=== PATIENT | female | born 1930 ===

== ENCOUNTER 2017-08-13 11:36 | Inpatient (IN) | payer MEDICAID, OTHER ==
[2017-08-13 11:47] VITALS: BMI 26.4
--- NOTE | 2017-08-13 12:05 | ED PDOC ---
Arrival/HPI - General Time Seen by Provider: 08/13/17 11:48 Historian: Patient, Family (son) - History of Present Illness Narrative History of Present Illness (Text): 08/13/17 12:00 87 year old female, whose PMH includes hypertension, and CVA, who presents to the emergency department accompanied by son, complaining of 5 episodes of bloody stool since this morning. According to son, patient developed abdominal cramping associated with the blood in stool and feeling lightheadedness. Patient denies any vomiting, diarrhea, chest pain, shortness of breath, fever or other complaints. Patient notes being a non-smoker and occasional drinker. No other complaints were made. Time/Duration: 1-3 hours Symptom Onset: Sudden Symptom Course: Unchanged Context: Home Past Medical History - Provider Review Nursing Documentation Reviewed: Yes - Cardiac Hx Hypertension: Yes - Pulmonary Other/Comment: SOB ON EXERTION - Neurological HX Cerebrovascular Accident: Yes - Psychiatric Hx Psychophysiologic Disorder: No Hx Substance Use: No - Surgical History Hx Hysterectomy: Yes Hx Orthopedic Surgery: Yes (R ARM R/T FX) - Suicidal Assessment Feels Threatened In Home Enviroment: No Family/Social History - Physician Review Nursing Documentation Reviewed: Yes Family/Social History: Unknown Family HX Smoking Status: Never Smoked Hx Alcohol Use: No Hx Substance Use: No Allergies/Home Meds Allergies/Adverse Reactions: Allergies No Known Allergies Allergy (Verified 09/14/14 12:57) Home Medications: Home Meds Medication Instructions Recorded Confirmed Warfarin Sodium [Coumadin] 4 mg PO DAILY 09/14/14 08/13/17 amLODIPine [Norvasc] 5 mg PO DAILY 09/14/14 09/14/14 Albuterol Sulfate [Albuterol 0.63 mg INH Q6 PRN 08/13/17 08/13/17 Sulfate] Diltiazem HCl [Diltiazem 24Hr ER] 180 mg PO DAILY 08/13/17 08/13/17 Docusate Sodium [Erickson' 100 mg PO DAILY 08/13/17 08/13/17 Laxative] Furosemide [Lasix] 20 mg PO DAILY 08/13/17 08/13/17 Memantine [Namenda] 10 mg PO BID 08/13/17 08/13/17 Multivit-Min/FA/Lycopen/Lutein 1 tab PO DAILY 08/13/17 08/13/17 [Centrum Silver Tablet] Simvastatin [Zocor] 10 mg PO HS 08/13/17 08/13/17 Warfarin Sodium [Jantoven] 5 mg PO DAILY 08/13/17 08/13/17 Review of Systems - Physician Review All systems were reviewed & negative as marked: Yes - Review of Systems Respiratory: absent: SOB Cardiovascular: absent: Chest Pain Gastrointestinal: Abdominal Pain, Stool Changes, Hematochezia. absent: Diarrhea , Vomiting Neurological: Dizziness (lightheadedness) Physical Exam Vital Signs Reviewed: Yes Vital Signs Temp Pulse Resp BP Pulse Ox 08/13/17 13:05 96 H 18 128/71 95 08/13/17 11:46 98.0 F 87 18 130/78 95 Temperature: Afebrile Blood Pressure: Normal Pulse: Regular Respiratory Rate: Normal Appearance: Positive for: Well-Appearing, Non-Toxic, Uncomfortable Pain Distress: None Mental Status: Positive for: Alert and Oriented X 3 - Systems Exam Head: Present: Atraumatic, Normocephalic Pupils: Present: PERRL Extroacular Muscles: Present: EOMI Conjunctiva: Present: Normal Respiratory/Chest: Present: Clear to Auscultation, Good Air Exchange. No: Respiratory Distress, Accessory Muscle Use, Wheezes, Rales, Rhonchi Cardiovascular: Present: Regular Rate and Rhythm, Normal S1, S2. No: Murmurs Abdomen: Present: Normal Bowel Sounds. No: Tenderness, Distention, Peritoneal Signs, Rebound, Guarding Rectal: Present: Gross Blood Neurological: Present: GCS=15, CN II-XII Intact, Speech Normal Skin: Present: Warm, Dry, Pale. No: Rashes, Normal Color Psychiatric: Present: Alert, Oriented x 3, Normal Insight, Normal Concentration Medical Decision Making ED Course and Treatment: 08/13/17 Impression: 87 year old female who appears pale and uncomfortable with (+) for grossly bloody rectal exam complaining of bloody bowel movement since this morning. Plan: -- EKG -- Chest X-ray -- Labs -- Reassess and disposition Progress Notes: 08/13/17 13:46 EKG shows atrial fibrillation rate approximately [address] or T-wave changes 08/13/17 13:50 CXR: Creator : Denzel Bartlett MD COMPARISON:Comparison chest 09/14/2014 FINDINGS: LUNGS:Poor inspiration with low lung volumes, crowded bronchovascular markings and mild bibasilar atelectasis. . Re- demonstrated is a stable elliptical shaped 2.1 x 1.7 cm dense calcification left medial lung apex of uncertain etiology though unchanged in size in overall appearance when compared with prior study. This focus could represent a calcified granuloma or calcified left paratracheal lymph node. Calcification great vessel less likely. PLEURA:No significant pleural effusion identified, no pneumothorax apparent. CARDIOVASCULAR: Cardiomegaly. OSSEOUS STRUCTURES: No significant abnormalities. VISUALIZED UPPER ABDOMEN: Normal. OTHER FINDINGS: None. IMPRESSION: Poor inspiration with low lung volumes, crowded bronchovascular markings and mild bibasilar atelectasis. Elliptical shaped calcification left medial lung apex unchanged in size and appearance from prior study 09/14/2014. This may represent a large calcified granuloma. - Lab Interpretations Lab Results: 08/13/17 12:20 08/13/17 12:20 Lab Results 08/13/17 12:20: Sodium 145, Potassium 4.0, Chloride 105, Carbon Dioxide 27, Anion Gap 17, BUN 21, Creatinine 0.8, Est GFR ( Amer) > 60, Est GFR (Non- Af Amer) > 60, Random Glucose 126 H, Calcium 9.5, Total Bilirubin 0.8, AST 38 H , ALT 27, Alkaline Phosphatase 66, Lactate Dehydrogenase 706 H, Total Creatine Kinase 40, Troponin I < 0.01, Total Protein 6.9, Albumin 3.5, Globulin 3.3, Albumin/Globulin Ratio 1.1, Lipase 30 08/13/17 12:20: PT 65.6 H, INR 5.51 H*, APTT 43.7 H 08/13/17 12:20: WBC 13.7 H D, RBC 4.83, Hgb 12.4, Hct 39.7, MCV 82.2, MCH 25.7, MCHC 31.2, RDW 17.3 H, Plt Count 361, MPV 10.2, Gran % 82.9 H, Lymph % (Auto) 9.7 L, [place] % (Auto) 6.1 H, Eos % (Auto) 0.9 L, Baso % (Auto) 0.4, Gran # 11.35 H, Lymph # (Auto) 1.3, [place] # (Auto) 0.8 H, Eos # (Auto) 0.1, Baso # (Auto) 0.05 I have reviewed the lab results: Yes - RAD Interpretation Radiology Orders: 08/13/17 12:00 CHEST PORTABLE [RAD] Stat [employer] Professor: Radiologist - EKG Interpretation Interpreted by ED Physician: Yes Type: 12 lead EKG - Medication Orders Current Medication Orders: Discontinued Medications Phytonadione 5 mg/ Sodium (Chloride) 50.5 mls @ 100 mls/hr IV ONCE ONE Stop: 08/13/17 13:44 - Scribe Statement The provider has reviewed the documentation as recorded by the Scribe Mag Pereira Provider Scribe Attestation: All medical record entries made by the Scribe were at my direction and personally dictated by me. I have reviewed the chart and agree that the record accurately reflects my personal performance of the history, physical exam, medical decision making, and the department course for this patient. I have also personally directed, reviewed, and agree with the discharge instructions and disposition. Disposition/Present on Arrival - Present on Arrival Any Indicators Present on Arrival: No History of DVT/PE: No History of Uncontrolled Diabetes: No Urinary Catheter: No History of Decub. Ulcer: No History Surgical Site Infection Following: None - Disposition Have Diagnosis and Disposition been Completed?: Yes Diagnosis: Gastrointestinal hemorrhage, Coagulopathy Disposition: HOSPITALIZED Disposition Time: 13:47 Patient Plan: Observation, Telemetry Patient Problems: Current Active Problems Problem Status Onset Coagulopathy Acute Gastrointestinal hemorrhage Acute Condition: GOOD
[2017-08-13 12:54] LABS: BASO # 0.05 K/mm3 (0.0-2.0); BASO % 0.4 % (0.0-3.0); EOS # 0.1 (0.0-0.7); EOS % 0.9 % (1.5-5.0); GRAN # 11.35 (1.4-6.5); GRAN % 82.9 % (50.0-68.0); HEMOGLOBIN 12.4 g/dL (12.0-16.0); LYMPH # 1.3 (1.2-3.4); LYMPH % 9.7 % (22.0-35.0); MEAN CELL VOLUME 82.2 fl (80.0-105.0); MEAN CORPUSCULAR HEMOGLOBIN 25.7 pg (25.0-35.0); MEAN CORPUSCULAR HGB CONC 31.2 g/dl (31.0-37.0); MEAN PLATELET VOLUME 10.2 fl (7.0-11.0); MONO # 0.8 (0.1-0.6); MONO % 6.1 % (1.0-6.0); RBC 4.83 10^6/uL (3.5-6.1); RED CELL DISTRIBUTION WIDTH 17.3 % (11.5-14.5); WHITE BLOOD COUNT 13.7 10^3/ul (4.5-11.0)
[2017-08-13 13:08] LABS: ALB/GLOB RATIO 1.1 (1.1-1.8); ALBUMIN 3.5 g/dL (3.0-4.8); CALCIUM 9.5 mg/dL (8.4-10.5); GFR NON-AFRICAN AMERICAN > 60; LIPASE 30 U/L (23-300)
[2017-08-13 13:09] LABS: ALT/SGPT 27 U/L (7-56); AST/SGOT 38 U/L (14-36); BLOOD UREA NITROGEN 21 mg/dL (7-21); PARTIAL THROMBOPLASTIN TIME 43.7 Seconds (25.1-36.5); PROTHROMBIN TIME 65.6 SECONDS (9.4-12.5)
[2017-08-13 13:12] LABS: INR 5.51 (0.93-1.08)
[2017-08-13] MEDS ORDERED: Phytonadione 5 MG in Sodium Chloride 0.9% 50 ML IV ONE (13:14)
[2017-08-13 13:19] LABS: TROPONIN I < 0.01 ng/mL
--- NOTE | 2017-08-13 13:46 | RAD ---
HISTORY: GIB COMPARISON: Comparison chest 09/14/2014 FINDINGS: LUNGS: Poor inspiration with low lung volumes, crowded bronchovascular markings and mild bibasilar atelectasis. . Re- demonstrated is a stable elliptical shaped 2.1 x 1.7 cm dense calcification left medial lung apex of uncertain etiology though unchanged in size in overall appearance when compared with prior study. This focus could represent a calcified granuloma or calcified left paratracheal lymph node. Calcification great vessel less likely. PLEURA: No significant pleural effusion identified, no pneumothorax apparent. CARDIOVASCULAR: Cardiomegaly. OSSEOUS STRUCTURES: No significant abnormalities. VISUALIZED UPPER ABDOMEN: Normal. OTHER FINDINGS: None. IMPRESSION: Poor inspiration with low lung volumes, crowded bronchovascular markings and mild bibasilar atelectasis. Elliptical shaped calcification left medial lung apex unchanged in size and appearance from prior study 09/14/2014. This may represent a large calcified granuloma.
--- NOTE | 2017-08-13 15:25 | CP.PCM.HP ---
<Kt Hightower - Last Filed: 08/13/17 15:17> History of Present Illness - History of Present Illness History of Present Illness: IM H&P for Dr Winkler CC; Bright red blood per rectum HPI: 87 Macedonian speaking female with a PMHx of HTN, HLD, dementia, hemorrhoids s/ p banding approx 30 yrs ago, CHF EF 60%, cva x 5 and persistent A. fib on coumadin presented to [facility] with complaints of 5 consecutive episodes of bright red blood per rectum. Pt son at bedside and primary caregiver. As per son , the patient had experienced a bloody bowel movement earlier this morning and associated abdominal cramping that subsided after the 5 consecutive episodes of bright red blood per rectum. Pt denies feeling any different than her usual state of health. Patient roughly 3 weeks ago was treated at the [facility] for flu like symptoms with azithromycin and medrol dose nell. Patient also had an adjustment of her coumadin more recently where she was to take 4 mg coumadin during the week and 5mg during the weekends after being found subtherapeuthic last week. Patient denied any trauma, night sweats, fevers , chills, weight loss. Patient's son did not that the patient has poor oral intake and has tried to supplement with protein drinks. Patient admitted to shortness of breath on exertion. Of note, patient did have a screening colonoscopy years ago, records are with [facility]. In ED, patient with stable vital signs. PMHx:HTN, HLD, dementia, hemorrhoids s/p banding approx 30 yrs ago, CHF EF 60%, cva x 5 and persistent A. fib on coumadin PSHx: hysterectomy, hemorrhoid banding, right arm fx repair SHx: denied tobacco, social ETOH, denied illicit ambulates with cane FamHx: denied Meds: MAR Reviewed Allergies: NKDA PMD: Dr. Polanco American Sign Language Teacher: Dr. Corona Present on Admission - Present on Admission Any Indicators Present on Admission: No Review of Systems - Review of Systems Review of Systems: as per HPI otherwise negative Past Patient History - Past Social History Smoking Status: Never Smoked - CARDIAC Hx Hypertension: Yes - PULMONARY Other/Comment: SOB ON EXERTION - NEUROLOGICAL HX Cerebrovascular Accident: Yes - MUSCULOSKELETAL/RHEUMATOLOGICAL Hx Musculoskeletal Disorders: Yes Hx Arthritis: Yes - GASTROINTESTINAL Hx Gastrointestinal Disorders: Yes Hx Hemorrhoids: Yes - GENITOURINARY/GYNECOLOGICAL Hx Genitourinary Disorders: Yes Hx Urinary Tract Infection: Yes - PSYCHIATRIC Hx Psychophysiologic Disorder: No Hx Substance Use: No - SURGICAL HISTORY Hx Hysterectomy: Yes Hx Orthopedic Surgery: Yes (R ARM R/T FX) - ANESTHESIA Hx Anesthesia: Yes Hx Anesthesia Reactions: No Meds Allergies/Adverse Reactions: Allergies Allergy/AdvReac Type Severity Reaction Status Date / Time No Known Allergies Allergy Verified 08/13/17 14:17 Physical Exam - Constitutional Appears: No Acute Distress - Head Exam Head Exam: ATRAUMATIC, NORMAL INSPECTION, NORMOCEPHALIC - Eye Exam Eye Exam: EOMI, Normal appearance, PERRL Pupil Exam: NORMAL ACCOMODATION, PERRL - ENT Exam ENT Exam: Mucous Membranes Moist, Normal Exam - Respiratory Exam Respiratory Exam: Decreased Breath Sounds, NORMAL BREATHING PATTERN - Cardiovascular Exam Cardiovascular Exam: Irregular Rhythm, +S1, +S2 - GI/Abdominal Exam GI & Abdominal Exam: Normal Bowel Sounds, Soft. absent: Tenderness - Rectal Exam Rectal Exam: Bloody Stool - Extremities Exam Extremities exam: Positive for: normal inspection - Back Exam Back exam: NORMAL INSPECTION - Neurological Exam Neurological exam: Alert, CN II-XII Intact, Oriented x3, Reflexes Normal - Psychiatric Exam Psychiatric exam: Normal Affect, Normal Mood - Skin Skin Exam: Dry, Intact, Normal Color, Warm Results - Vital Signs Recent Vital Signs: Last Vital Signs Temp 98.2 F 08/13/17 14:37 Pulse 89 08/13/17 14:37 Resp 17 08/13/17 15:12 BP 125/68 08/13/17 14:37 Pulse Ox 95 08/13/17 15:12 - Labs Result Diagrams: 08/13/17 12:20 08/13/17 12:20 Labs: Laboratory Results - last 24 hr 08/13/17 08/13/17 08/13/17 12:20 12:20 12:20 WBC 13.7 H D RBC 4.83 Hgb 12.4 Hct 39.7 MCV 82.2 MCH 25.7 MCHC 31.2 RDW 17.3 H Plt Count 361 MPV 10.2 Gran % 82.9 H Lymph % (Auto) 9.7 L [place] % (Auto) 6.1 H Eos % (Auto) 0.9 L Baso % (Auto) 0.4 Gran # 11.35 H Lymph # (Auto) 1.3 [place] # (Auto) 0.8 H Eos # (Auto) 0.1 Baso # (Auto) 0.05 PT 65.6 H INR 5.51 H* APTT 43.7 H Sodium 145 Potassium 4.0 Chloride 105 Carbon Dioxide 27 Anion Gap 17 BUN 21 Creatinine 0.8 Est GFR ( Amer) > 60 Est GFR (Non-Af Amer) > 60 Random Glucose 126 H Calcium 9.5 Total Bilirubin 0.8 AST 38 H ALT 27 Alkaline Phosphatase 66 Lactate Dehydrogenase 706 H Total Creatine Kinase 40 Troponin I < 0.01 Total Protein 6.9 Albumin 3.5 Globulin 3.3 Albumin/Globulin Ratio 1.1 Lipase 30 Blood Type Antibody Screen BBK History Checked 08/13/17 12:20 WBC RBC Hgb Hct MCV MCH MCHC RDW Plt Count MPV Gran % Lymph % (Auto) [place] % (Auto) Eos % (Auto) Baso % (Auto) Gran # Lymph # (Auto) [place] # (Auto) Eos # (Auto) Baso # (Auto) PT INR APTT Sodium Potassium Chloride Carbon Dioxide Anion Gap BUN Creatinine Est GFR ( Amer) Est GFR (Non-Af Amer) Random Glucose Calcium Total Bilirubin AST ALT Alkaline Phosphatase Lactate Dehydrogenase Total Creatine Kinase Troponin I Total Protein Albumin Globulin Albumin/Globulin Ratio Lipase Blood Type A POSITIVE Antibody Screen Negative BBK History Checked No verified bt Assessment & Plan - Assessment and Plan (Free Text) Assessment: 87 Macedonian speaking female with a PMHx of HTN, HLD, dementia, hemorrhoids s/p banding approx 30 yrs ago, CHF EF 60%, cva x 5 and persistent A. fib on coumadin admitted to telemetry for monitoring for GI bleed Hematochezia GI consulted Dr Thacker bright red blood per rectum INR supratherapeutic 5.51 NPO Hold coumadin, CBC q6h, Repeat INR in AM Vitamin K inj 5mg in ED CT Abd pelvis with PO contrast to assess for masses Protonix 40mg BID HTN stable hold home meds lopressor 5mg q6h prn A.fib rate controlled hold home meds and monitor lopressor 5 mg q6h prn Supratherapeutic INR Will consider Cardio consult Shortness of breath CXR lung nodule calcified unchanged from prior studies duonebs q6 prn 02 NC 2L prn maintain 02 sat >90% continue to monitor SCDs protonix Seen reviewed and discussed with Dr. Winkler <Megha Winkler - Last Filed: 08/14/17 07:14> Results - Vital Signs Recent Vital Signs: Last Vital Signs Temp 98.2 F 08/14/17 06:00 Pulse 76 08/14/17 06:00 Resp 20 08/14/17 06:00 BP 136/50 L 08/14/17 06:00 Pulse Ox 96 08/14/17 06:00 - Labs Result Diagrams: 08/14/17 00:40 08/13/17 12:20 Labs: Laboratory Results - last 24 hr 08/13/17 08/13/17 08/14/17 18:00 18:00 00:40 WBC 15.6 H 13.7 H RBC 4.91 4.46 Hgb 12.6 11.6 L Hct 40.6 36.1 MCV 82.7 80.9 MCH 25.7 26.0 MCHC 31.0 32.1 RDW 17.2 H 17.0 H Plt Count 378 367 MPV 10.2 9.9 Gran % 72.3 H 60.8 Lymph % (Auto) 20.9 L 30.9 [place] % (Auto) 5.4 5.6 Eos % (Auto) 0.9 L 2.0 Baso % (Auto) 0.5 0.7 Gran # 11.30 H 8.31 H Lymph # (Auto) 3.3 4.2 H [place] # (Auto) 0.9 H 0.8 H Eos # (Auto) 0.1 0.3 Baso # (Auto) 0.08 0.10 Blood Type Confirm A POSITIVE Attending/Attestation - Attestation I have personally seen and examined this patient.: Yes I have fully participated in the care of the patient.: Yes I have reviewed all pertinent clinical information: Yes Notes (Text): 08/13/17 87 year old female with past medical history of hypertension, afib on coumadin, and dyslipidemia who presents complaint of blood in stools. INR was also supratherapeutic; patient received Vitamin K. Will obtain serial H/H. NPO with IVF and protonix. GI evaluation is requested and CT abd/pelvis is ordered. Coumadin is on hold for now. Will repeat INR in AM. Will hold medications for blood pressure at this time and monitor. Mild leukocytosis ?reactive. CXR negative for infiltrate and UA is negative. Will monitor. Son is also at bedside and questions were answered. Megha Winkler MD Hospitalist.
[2017-08-13] MEDS ORDERED: Metoprolol 1 mg/ml Inj IVP PRN (15:43)
[2017-08-13] MEDS ORDERED: Iohexol 240 (50 ml) ONE (17:00)
[2017-08-13] MEDS ORDERED: Pneumococcal 23-Valent Vaccine IM ONE (18:09)
[2017-08-13] MEDS: Sodium Chloride 0.9% 1,000 ML IV SCH (18:10)
[2017-08-13 18:12] LABS: BASO # 0.08 K/mm3 (0.0-2.0); BASO % 0.5 % (0.0-3.0); EOS # 0.1 (0.0-0.7); EOS % 0.9 % (1.5-5.0); GRAN # 11.3 (1.4-6.5); GRAN % 72.3 % (50.0-68.0); HEMOGLOBIN 12.6 g/dL (12.0-16.0); LYMPH # 3.3 (1.2-3.4); LYMPH % 20.9 % (22.0-35.0); MEAN CELL VOLUME 82.7 fl (80.0-105.0); MEAN CORPUSCULAR HEMOGLOBIN 25.7 pg (25.0-35.0); MEAN PLATELET VOLUME 10.2 fl (7.0-11.0); MONO # 0.9 (0.1-0.6); MONO % 5.4 % (1.0-6.0); RBC 4.91 10^6/uL (3.5-6.1); RED CELL DISTRIBUTION WIDTH 17.2 % (11.5-14.5); WHITE BLOOD COUNT 15.6 10^3/ul (4.5-11.0)
--- NOTE | 2017-08-13 20:47 | CT ---
EXAM: CT Abdomen and Pelvis Without Intravenous Contrast EXAM DATE/TIME: 08/13/2017 3:10 PM CLINICAL HISTORY: The patient age is 87 years old and is female; Pain; Abdominal pain; Patient HX: Gi bleed Facility exam id and description: Ct abdpels abd pelvis po contrast only TECHNIQUE: Axial computed tomography images of the abdomen and pelvis without intravenous contrast. All CT scans at this facility use one or more dose reduction techniques, viz.: automated exposure control; ma/kV adjustment per patient size (including targeted exams where dose is matched to indication; i.e. head); or iterative reconstruction technique. Coronal and sagittal reformatted images were created and reviewed. COMPARISON: No relevant prior studies available. FINDINGS: Lung bases: Small consolidations are visualized within the right middle lobe and lingula, suggestive of atelectatic change or infiltrates. Mediastinum: There is a small hiatal hernia. ABDOMEN: Liver: No mass. Gallbladder and bile ducts: No calcified stones. No ductal dilation. Pancreas: Normal contour. No ductal dilation. Spleen: No splenomegaly. Adrenals: There is thickening of the left adrenal gland. Kidneys and ureters: No obstructing stones. No hydronephrosis. Stomach and bowel: There is fecal distention of the rectum. There a few segments of wall thickening involving the sigmoid colon, suggestive of incomplete distention or colitis, although additional pathology cannot be excluded. Colonic diverticula are identified, without acute inflammatory stranding of the adjacent mesentery. PELVIS: Appendix: Not visualized. Bladder: No stones. Reproductive: Unremarkable as visualized. ABDOMEN and PELVIS: Intraperitoneal space: No free air. Bones/joints: There is a moderate compression fracture of the T12 vertebral body, indeterminate acuity. There is mild dextroscoliosis of the lumbar spine. Hypertrophic degenerative changes are noted within the spine. There is abnormal morphology of the anterior right iliac bone, suggestive of an old fracture or exostosis. Soft tissues: There is soft tissue swelling calcifications within the subcutaneous tissues at the level of the pelvis. Vasculature: There is atherosclerotic calcification of the abdominal aorta. No abdominal aortic aneurysm. Lymph nodes: No enlarged lymph nodes. IMPRESSION: 1. There a few segments of wall thickening involving the sigmoid colon, suggestive of incomplete distention or colitis, although additional pathology cannot be excluded. 2. There is fecal distention of the rectum. 3. Diverticulosis. 4. There is a moderate compression fracture of the T12 vertebral body, indeterminate in acuity. Clinical correlation is recommended. 5. Small consolidations are visualized within the right middle lobe and lingula, suggestive of atelectatic change or infiltrates. 6. Additional CT findings described above.
[2017-08-14 01:02] LABS: BASO # 0.1 K/mm3 (0.0-2.0); BASO % 0.7 % (0.0-3.0); EOS # 0.3 (0.0-0.7); GRAN # 8.31 (1.4-6.5); GRAN % 60.8 % (50.0-68.0); HEMOGLOBIN 11.6 g/dL (12.0-16.0); LYMPH # 4.2 (1.2-3.4); LYMPH % 30.9 % (22.0-35.0); MEAN CELL VOLUME 80.9 fl (80.0-105.0); MEAN CORPUSCULAR HGB CONC 32.1 g/dl (31.0-37.0); MEAN PLATELET VOLUME 9.9 fl (7.0-11.0); MONO # 0.8 (0.1-0.6); MONO % 5.6 % (1.0-6.0); RBC 4.46 10^6/uL (3.5-6.1); WHITE BLOOD COUNT 13.7 10^3/ul (4.5-11.0)
[2017-08-14 07:19] LABS: BASO # 0.04 K/mm3 (0.0-2.0); BASO % 0.4 % (0.0-3.0); EOS # 0.2 (0.0-0.7); GRAN % 70.1 % (50.0-68.0); HEMOGLOBIN 10.3 g/dL (12.0-16.0); LYMPH # 2.4 (1.2-3.4); MEAN CELL VOLUME 81.1 fl (80.0-105.0); MEAN CORPUSCULAR HEMOGLOBIN 25.2 pg (25.0-35.0); MEAN CORPUSCULAR HGB CONC 31.1 g/dl (31.0-37.0); MEAN PLATELET VOLUME 10.3 fl (7.0-11.0); MONO # 0.7 (0.1-0.6); MONO % 6.5 % (1.0-6.0); RBC 4.08 10^6/uL (3.5-6.1); RED CELL DISTRIBUTION WIDTH 16.9 % (11.5-14.5); WHITE BLOOD COUNT 11.4 10^3/ul (4.5-11.0)
[2017-08-14 07:30] LABS: INR 1.37 (0.93-1.08); PARTIAL THROMBOPLASTIN TIME 30.2 Seconds (25.1-36.5); PROTHROMBIN TIME 15.8 SECONDS (9.4-12.5)
[2017-08-14 07:46] LABS: ALBUMIN 2.9 g/dL (3.0-4.8); ALT/SGPT 24 U/L (7-56); AST/SGOT 25 U/L (14-36); BLOOD UREA NITROGEN 15 mg/dL (7-21); CALCIUM 8.6 mg/dL (8.4-10.5); GFR NON-AFRICAN AMERICAN > 60
[2017-08-14] MEDS ORDERED: Potassium Chloride 20 mEq ER Tab PO STA (08:07)
[2017-08-14] MEDS ORDERED: Albuterol-Ipratrop 3 mg / 0.5 (3 ml) UD IH PRN (08:11)
--- NOTE | 2017-08-14 09:28 | CP.PCM.CON ---
<Ronda Marc - Last Filed: 08/14/17 09:23> History of Present Illness - History of Present Illness History of Present Illness: GI Fellow PGY 4 Consult Note This is a 87yF with a PMHx of HTN, HLD, dementia, hemorrhoids s/p banding approx 30 yrs ago, CHF EF 60%, cva x 5 and persistent A. fib on coumadin presented to ED with complaints of 5 bright red blood per rectum. Pt reports having abdominal pain for 2 days with associated bloody BM started yesterday and had 5 episodes prior coming to the hospital. In the hospital she had one bloody BM and overnight had 3 soft brown BM per nursing. Pt reports feeling weakness since she has been NPO overnight but denies dizziness or SOB, CP. In the ER pt was found to have a supratherapetic INR and was given vit K with Hgb and vitals stable. Patient did have a screening colonoscopy years ago, records are with [facility]. ROS: A 12pt ROS was negative except as above PMHx:As stated in HPI PSHx: hysterectomy, hemorrhoid banding, right arm fx repair SHx: denied tobacco, social ETOH, denied illicit drugs FamHx: denied Past Patient History - Past Social History Smoking Status: Never Smoked - CARDIAC Hx Cardiac Disorders: Yes Hx Congestive Heart Failure: Yes Hx Hypertension: Yes - PULMONARY Hx Respiratory Disorders: Yes Hx Pneumonia: Yes Other/Comment: SOB ON EXERTION - NEUROLOGICAL Hx Neurological Disorder: Yes HX Cerebrovascular Accident: Yes - HEENT Hx HEENT Problems: No - RENAL Hx Chronic Kidney Disease: No - ENDOCRINE/METABOLIC Hx Endocrine Disorders: No - HEMATOLOGICAL/ONCOLOGICAL Hx Blood Disorders: Yes (GI BLEED) - INTEGUMENTARY Hx Dermatological Problems: No - MUSCULOSKELETAL/RHEUMATOLOGICAL Hx Musculoskeletal Disorders: Yes Hx Arthritis: Yes Hx Falls: No Hx Unsteady Gait: Yes (CANE) - GASTROINTESTINAL Hx Gastrointestinal Disorders: Yes (GI BLEED,HEMORRHOIDS,CONSTIPATION) - GENITOURINARY/GYNECOLOGICAL Hx Genitourinary Disorders: Yes Hx Urinary Tract Infection: Yes - PSYCHIATRIC Hx Psychophysiologic Disorder: No Hx Substance Use: No - SURGICAL HISTORY Hx Surgeries: Yes (HEMORRHOIDECTOMY) Hx Hysterectomy: Yes (PT DENIES) Hx Orthopedic Surgery: Yes (R ARM R/T FX) - ANESTHESIA Hx Anesthesia: Yes Hx Anesthesia Reactions: No Meds Allergies/Adverse Reactions: Allergies Allergy/AdvReac Type Severity Reaction Status Date / Time No Known Allergies Allergy Verified 08/13/17 14:17 - Medications Medications: Current Medications Albuterol/Ipratropium (Duoneb 3 Mg/0.5 Mg (3 Ml) Ud) 3 ml IH Q6H PRN PRN Reason: WHEEZING Bisacodyl (Dulcolax) 10 mg RC ONCE ONE Stop: 08/14/17 09:21 Docusate Sodium (Colace) 100 mg PO DAILY [facility] Guaifenesin (Robitussin) 200 mg PO Q4H PRN PRN Reason: Cough and congestion Sodium Chloride (Sodium Chloride 0.9%) 1,000 mls @ 75 mls/hr IV .[id number] [facility] Last Admin: 08/13/17 18:10 Dose: 75 mls/hr Metoprolol Tartrate (Lopressor) 5 mg IVP Q6H PRN PRN Reason: Systolic Blood Pressure Pantoprazole Sodium (Protonix Inj) 40 mg IVP Q12 [facility] Last Admin: 08/13/17 22:13 Dose: 40 mg Polyethylene Glycol (Miralax) 17 gm PO BID [facility] Physical Exam - Constitutional Appears: Non-toxic, No Acute Distress - Head Exam Head Exam: ATRAUMATIC, NORMAL INSPECTION, NORMOCEPHALIC - Eye Exam Eye Exam: EOMI, Normal appearance, PERRL Pupil Exam: PERRL - ENT Exam ENT Exam: Mucous Membranes Dry - Neck Exam Neck exam: Positive for: Full Rom - Respiratory Exam Respiratory Exam: Clear to Auscultation Bilateral, NORMAL BREATHING PATTERN - Cardiovascular Exam Cardiovascular Exam: Irregular Rhythm, +S1, +S2 - GI/Abdominal Exam GI & Abdominal Exam: Normal Bowel Sounds, Soft, Tenderness. absent: Distended, Firm, Guarding - Rectal Exam Additional comments: stool in rectal vault, brown stool no melena or hematochezia - Extremities Exam Extremities exam: Positive for: normal inspection - Neurological Exam Neurological exam: Alert, Oriented x3 - Psychiatric Exam Psychiatric exam: Normal Affect, Normal Mood - Skin Skin Exam: Dry, Intact, Normal Color, Warm Results - Vital Signs Recent Vital Signs: Last Vital Signs Temp 98.2 F 08/14/17 06:00 Pulse 76 08/14/17 06:00 Resp 20 08/14/17 06:00 BP 136/50 L 08/14/17 06:00 Pulse Ox 96 08/14/17 06:00 - Labs Result Diagrams: 08/14/17 06:00 08/14/17 06:00 Labs: Laboratory Results - last 24 hr 08/13/17 08/13/17 08/14/17 18:00 18:00 00:40 WBC 15.6 H 13.7 H RBC 4.91 4.46 Hgb 12.6 11.6 L Hct 40.6 36.1 MCV 82.7 80.9 MCH 25.7 26.0 MCHC 31.0 32.1 RDW 17.2 H 17.0 H Plt Count 378 367 MPV 10.2 9.9 Gran % 72.3 H 60.8 Lymph % (Auto) 20.9 L 30.9 [place] % (Auto) 5.4 5.6 Eos % (Auto) 0.9 L 2.0 Baso % (Auto) 0.5 0.7 Gran # 11.30 H 8.31 H Lymph # (Auto) 3.3 4.2 H [place] # (Auto) 0.9 H 0.8 H Eos # (Auto) 0.1 0.3 Baso # (Auto) 0.08 0.10 PT INR APTT Sodium Potassium Chloride Carbon Dioxide Anion Gap BUN Creatinine Est GFR ( Amer) Est GFR (Non-Af Amer) Random Glucose Calcium Phosphorus Magnesium Total Bilirubin AST ALT Alkaline Phosphatase Total Protein Albumin Globulin Albumin/Globulin Ratio Blood Type Confirm A POSITIVE 08/14/17 08/14/17 08/14/17 06:00 06:00 06:00 WBC 11.4 H RBC 4.08 Hgb 10.3 L Hct 33.1 L MCV 81.1 MCH 25.2 MCHC 31.1 RDW 16.9 H Plt Count 335 MPV 10.3 Gran % 70.1 H Lymph % (Auto) 21.0 L [place] % (Auto) 6.5 H Eos % (Auto) 2.0 Baso % (Auto) 0.4 Gran # 8.00 H Lymph # (Auto) 2.4 [place] # (Auto) 0.7 H Eos # (Auto) 0.2 Baso # (Auto) 0.04 PT 15.8 H INR 1.37 H APTT 30.2 Sodium 142 Potassium 3.3 L Chloride 103 Carbon Dioxide 29 Anion Gap 13 BUN 15 Creatinine 0.7 Est GFR ( Amer) > 60 Est GFR (Non-Af Amer) > 60 Random Glucose 78 Calcium 8.6 Phosphorus 3.0 Magnesium 1.9 Total Bilirubin 1.1 AST 25 ALT 24 Alkaline Phosphatase 53 Total Protein 5.9 Albumin 2.9 L Globulin 3.0 Albumin/Globulin Ratio 1.0 L Blood Type Confirm Assessment & Plan - Assessment and Plan (Free Text) Assessment: This is a 87yF presenting with abdominal pain and rectal bleeding 1. Rectal bleeding 2. Anemia 3. Afib on OAC 4. Supratherpeautic INR Plan: -Continue supportive care -IVF hydration -Clear liquid diet -CT imaging reviewed with stool burden and mild thickening of sigmoid colon-ddx ischemic colitis, diverticulosis, mass lesion -If pt continues to have rectal bleeding or Hgb trends further down will consider colonoscopy -At this time will recheck H/H at 1600 -Bowel regimen with miralax bid and dulcolax suppository -Will continue to follow pt closely <Pierre Thacker - Last Filed: 08/14/17 11:45> Meds - Medications Medications: Current Medications Albuterol/Ipratropium (Duoneb 3 Mg/0.5 Mg (3 Ml) Ud) 3 ml IH Q6H PRN PRN Reason: WHEEZING Docusate Sodium (Colace) 100 mg PO DAILY [facility] Last Admin: 08/14/17 10:13 Dose: 100 mg Guaifenesin (Robitussin) 200 mg PO Q4H PRN PRN Reason: Cough and congestion Sodium Chloride (Sodium Chloride 0.9%) 1,000 mls @ 75 mls/hr IV .[id number] [facility] Last Admin: 08/13/17 18:10 Dose: 75 mls/hr Metoprolol Tartrate (Lopressor) 5 mg IVP Q6H PRN PRN Reason: Systolic Blood Pressure Pantoprazole Sodium (Protonix Inj) 40 mg IVP Q12 [facility] Last Admin: 08/14/17 10:14 Dose: 40 mg Polyethylene Glycol (Miralax) 17 gm PO BID [facility] Last Admin: 08/14/17 10:47 Dose: Not Given Results - Vital Signs Recent Vital Signs: Last Vital Signs Temp 98.2 F 08/14/17 06:00 Pulse 76 08/14/17 06:00 Resp 20 08/14/17 06:00 BP 136/50 L 08/14/17 06:00 Pulse Ox 96 08/14/17 06:00 - Labs Result Diagrams: 08/14/17 06:00 08/14/17 06:00 Labs: Laboratory Results - last 24 hr 08/13/17 08/13/17 08/14/17 18:00 18:00 00:40 WBC 15.6 H 13.7 H RBC 4.91 4.46 Hgb 12.6 11.6 L Hct 40.6 36.1 MCV 82.7 80.9 MCH 25.7 26.0 MCHC 31.0 32.1 RDW 17.2 H 17.0 H Plt Count 378 367 MPV 10.2 9.9 Gran % 72.3 H 60.8 Lymph % (Auto) 20.9 L 30.9 [place] % (Auto) 5.4 5.6 Eos % (Auto) 0.9 L 2.0 Baso % (Auto) 0.5 0.7 Gran # 11.30 H 8.31 H Lymph # (Auto) 3.3 4.2 H [place] # (Auto) 0.9 H 0.8 H Eos # (Auto) 0.1 0.3 Baso # (Auto) 0.08 0.10 PT INR APTT Sodium Potassium Chloride Carbon Dioxide Anion Gap BUN Creatinine Est GFR ( Amer) Est GFR (Non-Af Amer) Random Glucose Calcium Phosphorus Magnesium Total Bilirubin AST ALT Alkaline Phosphatase Total Protein Albumin Globulin Albumin/Globulin Ratio Blood Type Confirm A POSITIVE 08/14/17 08/14/17 08/14/17 06:00 06:00 06:00 WBC 11.4 H RBC 4.08 Hgb 10.3 L Hct 33.1 L MCV 81.1 MCH 25.2 MCHC 31.1 RDW 16.9 H Plt Count 335 MPV 10.3 Gran % 70.1 H Lymph % (Auto) 21.0 L [place] % (Auto) 6.5 H Eos % (Auto) 2.0 Baso % (Auto) 0.4 Gran # 8.00 H Lymph # (Auto) 2.4 [place] # (Auto) 0.7 H Eos # (Auto) 0.2 Baso # (Auto) 0.04 PT 15.8 H INR 1.37 H APTT 30.2 Sodium 142 Potassium 3.3 L Chloride 103 Carbon Dioxide 29 Anion Gap 13 BUN 15 Creatinine 0.7 Est GFR ( Amer) > 60 Est GFR (Non-Af Amer) > 60 Random Glucose 78 Calcium 8.6 Phosphorus 3.0 Magnesium 1.9 Total Bilirubin 1.1 AST 25 ALT 24 Alkaline Phosphatase 53 Total Protein 5.9 Albumin 2.9 L Globulin 3.0 Albumin/Globulin Ratio 1.0 L Blood Type Confirm Attending/Attestation - Attestation I have personally seen and examined this patient.: Yes I have fully participated in the care of the patient.: Yes I have reviewed all pertinent clinical information: Yes Notes (Text): 08/14/17 11:44 87 year old female with h/o Afib on AC a/w abdominal pain and rectal bleeding with supratherapeutic inr. INR now normalized. Recommend PPI. Monitor for bleeding. Clear liquids. Repeat cbc later today. If persistent bleeding, consider endoscopic evaluation. CT reviewed. No acute findings.
--- NOTE | 2017-08-14 09:33 | CARD ---
APPROVED REPORT EKG Measurement Heart [id number] <Conclusion> Atrial fibrillation NSSTW changes No change except the rate is faster
[2017-08-14] MEDS: POLYETHYLENE GLYCOL 3350 17 GM/Dose PACKET PO SCH ×2 (10:47→17:26)
--- NOTE | 2017-08-14 12:45 | CP.PCM.PN ---
Addendum entered and electronically signed by Lolis Salamanca DO 08/14/17 14:02: Addendum to Plan for cough: CAT scan shows right middle lobe and ligular infiltrate vs atelectasis, pt having productive cough with mild leukocytosis, s/p Z pack treatment outpatient for bronchitis. Started on Levaquin. Original Note: <Lolis Salamanca - Last Filed: 08/14/17 12:41> Subjective - Date & Time of Evaluation Date of Evaluation: 08/14/17 Time of Evaluation: 12:41 - Subjective Subjective: Lolis Salamanca, PGY1, Progress Note for Dr Winkler: Patient seen and examined at bedside. No acute events overnight. Pt reports soft brown stools overnight, denies hematochezia or melena. Denies cp, sob, focal neurologic deficits, abdominal pain, urinary symptoms, leg swelling. Objective - Vital Signs/Intake and Output Vital Signs (last 24 hours): Temp Pulse Resp BP Pulse Ox 98.2 F 76 20 136/50 L 96 08/14/17 06:00 08/14/17 06:00 08/14/17 06:00 08/14/17 06:00 08/14/17 06:00 Intake and Output: 08/14/17 08/14/17 06:59 18:59 Intake Total 750 Balance 750 - Medications Medications: Current Medications Albuterol/Ipratropium (Duoneb 3 Mg/0.5 Mg (3 Ml) Ud) 3 ml IH Q6H PRN PRN Reason: WHEEZING Docusate Sodium (Colace) 100 mg PO DAILY [facility] Last Admin: 08/14/17 10:13 Dose: 100 mg Guaifenesin (Robitussin) 200 mg PO Q4H PRN PRN Reason: Cough and congestion Sodium Chloride (Sodium Chloride 0.9%) 1,000 mls @ 75 mls/hr IV .[id number] [facility] Last Admin: 08/13/17 18:10 Dose: 75 mls/hr Metoprolol Tartrate (Lopressor) 5 mg IVP Q6H PRN PRN Reason: Systolic Blood Pressure Pantoprazole Sodium (Protonix Inj) 40 mg IVP Q12 [facility] Last Admin: 08/14/17 10:14 Dose: 40 mg Polyethylene Glycol (Miralax) 17 gm PO BID [facility] Last Admin: 08/14/17 10:47 Dose: Not Given - Labs Labs: 08/14/17 06:00 08/14/17 06:00 PT 15.8 SECONDS (9.4-12.5) H 08/14/17 06:00 INR 1.37 (0.93-1.08) H 08/14/17 06:00 APTT 30.2 Seconds (25.1-36.5) 08/14/17 06:00 - Constitutional Appears: Non-toxic, No Acute Distress - Head Exam Head Exam: ATRAUMATIC, NORMOCEPHALIC - Eye Exam Eye Exam: EOMI, PERRL. absent: Conjunctival injection, Nystagmus, Scleral icterus Pupil Exam: NORMAL ACCOMODATION, PERRL. absent: Fixed, Irregular, Unequal - ENT Exam ENT Exam: Mucous Membranes Moist - Neck Exam Neck Exam: Full ROM - Respiratory Exam Respiratory Exam: Clear to Ausculation Bilateral, NORMAL BREATHING PATTERN. absent: Accessory Muscle Use, Wheezes, Respiratory Distress - Cardiovascular Exam Cardiovascular Exam: RRR, +S1, +S2. absent: Murmur - GI/Abdominal Exam GI & Abdominal Exam: Soft, Normal Bowel Sounds. absent: Distended, Firm, Guarding, Rigid, Tenderness, Mass, Organomegaly - Extremities Exam Extremities Exam: Normal Inspection. absent: Calf Tenderness, Pedal Edema - Back Exam Back Exam: NORMAL INSPECTION - Neurological Exam Neurological Exam: Alert, Awake, Oriented x3 - Psychiatric Exam Psychiatric exam: Normal Affect, Normal Mood - Skin Skin Exam: Dry, Normal Color, Warm Assessment and Plan - Assessment and Plan (Free Text) Assessment: 87 year old Yoruba speaking female with a PMHx of HTN, HLD, dementia, hemorrhoids s/p banding approx 30 yrs ago, CHF EF 60%, cva x 5 and persistent A. fib on coumadin, admitted for lower GI 2/2 likely supratherapeutic INR: Hematochezia: 2/2 likely supratherapeutic INR vs less likely ischemic colitis vs sigmoid mass lesion vs AVM vs diverticular bleeding - CT abd pelvis shows few segments of wall thickening involving sigmoid colon - incomplete distention or colitis? fecal distention of colitis, compression fx of T12 - GI consulted Dr Thacker. appreciate recs - INR subtheraptuic today. discussed with GI, awaiting recs to resume - CLD - Protonix 40mg BID Cough: - CXR shows calcified granuloma, bibasilar atelectasis, no infiltrates, poor quality - mild leukocytosis, trending down - afebrile - productive cough, clear sputum - robitussin, incentive spirometer use - duonebs q6 prn - 02 NC 2L prn maintain 02 sat >90% - monitor. may repeat CXR if worsening. HTN: - stable - hold home meds - lopressor 5mg q6h prn Hx of A.fib: - INR subtherapeutic today - will await GI/Cardio regarding restarting warfarin - CHADSVASC 6, Hasbled 3 - Cardio consulted. f/u recs - monitor - lopressor 5 mg q6h prn SCDs protonix Case seen, reviewed and discussed with Dr. Winkler. Lolis Salamanca, PGY1 <Megha Winkler - Last Filed: 08/14/17 14:46> Objective - Vital Signs/Intake and Output Vital Signs (last 24 hours): Temp Pulse Resp BP Pulse Ox 98.5 F 86 18 137/66 96 08/14/17 12:00 08/14/17 12:00 08/14/17 12:00 08/14/17 12:00 08/14/17 06:00 Intake and Output: 08/14/17 08/14/17 06:59 18:59 Intake Total 750 800 Balance 750 800 - Medications Medications: Current Medications Albuterol/Ipratropium (Duoneb 3 Mg/0.5 Mg (3 Ml) Ud) 3 ml IH Q6H PRN PRN Reason: WHEEZING Docusate Sodium (Colace) 100 mg PO DAILY [facility] Last Admin: 08/14/17 10:13 Dose: 100 mg Guaifenesin (Robitussin) 200 mg PO Q4H PRN PRN Reason: Cough and congestion Hydrocortisone (Anusol-Hc) 0 gm NV BID [facility] Sodium Chloride (Sodium Chloride 0.9%) 1,000 mls @ 75 mls/hr IV .[id number] [facility] Last Admin: 08/13/17 18:10 Dose: 75 mls/hr Levofloxacin/Dextrose (Levaquin 750mg) 750 mg in 150 mls @ 100 mls/hr IVPB DAILY [facility] PRN Reason: Protocol Stop: 08/19/17 14:01 Metoprolol Tartrate (Lopressor) 5 mg IVP Q6H PRN PRN Reason: Systolic Blood Pressure Pantoprazole Sodium (Protonix Inj) 40 mg IVP Q12 [facility] Last Admin: 08/14/17 10:14 Dose: 40 mg Polyethylene Glycol (Miralax) 17 gm PO BID [facility] Last Admin: 08/14/17 10:47 Dose: Not Given - Labs Labs: 08/14/17 06:00 08/14/17 06:00 PT 15.8 SECONDS (9.4-12.5) H 08/14/17 06:00 INR 1.37 (0.93-1.08) H 08/14/17 06:00 APTT 30.2 Seconds (25.1-36.5) 08/14/17 06:00 Attending/Attestation - Attestation I have personally seen and examined this patient.: Yes I have fully participated in the care of the patient.: Yes I have reviewed all pertinent clinical information, including history, physical exam and plan: Yes Notes (Text): 08/14/17 14:31 87 year old female with past medical history of hypertension, CVA, afib on coumadin, and dyslipidemia who presented with complaint of blood in stools. INR was also supratherapeutic for which patient received Vitamin K. CT abd/ pelvis was done which shows fecal distention, mild colon wall thickening and diverticulosis. Overnight no acute events. She no longer reports any bleeding. INR is now subtherapeutic. Continue with liquid diet. Continue with protonix. Started on miralax and dulcolax. Continue with serial H/H monitoring. GI and cardiology are following and will repeat H/H this afternoon. Will monitor for now; consider endoscopic evaluation if bleeding recurs or significant hemoglobin drop. If not will discuss with GI/cardiology regarding anticoagulation. Patient has mild leukocytosis and cough. CT showed right middle lobe and lingulair consolidation. Will check procalcitonin and start antibiotics. Son is also at bedside and questions were answered. Megha Winkler MD Hospitalist.
[2017-08-14] MEDS ORDERED: cefTRIAXone 1 gm 1 GM/100 ML BAG IVPB SCH (13:45)
[2017-08-14] MEDS ORDERED: Azithromycin 500MG/NS 250ml 500 MG/250 ML BAG IVPB SCH (13:45)
[2017-08-14] MEDS ORDERED: levoFLOXacin 750 mg in D5W 750 MG/150 ML BAG IVPB SCH (14:00)
[2017-08-14] MEDS: guaiFENesin 200 mg/10 ml Syrup UD PO PRN (14:33)
[2017-08-14 15:59] LABS: HEMOGLOBIN 10.6 g/dL (12.0-16.0)
--- NOTE | 2017-08-14 16:06 | CON ---
DATE: CARDIOLOGY CONSULT: REASON FOR CONSULTATION: Atrial fibrillation as well as coagulopathy and rectal bleeding. HISTORY OF PRESENT ILLNESS: The patient is an 87-year-old Marshallese female, who has a history of chronic atrial fibrillation, has been on Coumadin therapy for years. The patient presented because of bright red blood per rectum and was found to have an INR of 5.51. The patient has her Coumadin prescribed in [place] at 4 mg daily and she also saw a physician in [place] prior to her arrival few months ago to [facility]. Since her arrival, the patient has been taking the home medication, but without any followup blood work and does not recall experiencing mouth bleeding or hematuria. SOCIAL HISTORY: The patient is a nonsmoker, nondrinker. PAST MEDICAL HISTORY: No history of stroke or a heart attack in the past. REVIEW OF SYSTEMS: The patient denies any chest pain, nausea or vomiting. PHYSICAL EXAMINATION: GENERAL: The patient is an elderly female, who does not appear to be in any distress. VITAL SIGNS: Blood pressure 137/66, heart rate 86, temperature 98.5, respirations 18. HEENT: Normocephalic. CHEST: Clear. HEART: S1 and S2 regular. ABDOMEN: Soft. EXTREMITIES: No edema. LABORATORY DATA: Hemoglobin and hematocrit yesterday on admission was 12.4 and 39.7, today are 10.3 and 33.1; white count today is 11.4; platelet count has been within normal limit. INR on admission was 5.51 and today is 1.37. Today's SMA-7 is within normal limits except for potassium of 3.3. EKG on admission revealed atrial fibrillation at a rate of 96. Abdomen and pelvis CT scan with p.o. contrast revealed thickening involving sigmoid colon suggestive of incomplete distention or colitis. Fecal distention of the rectum. Diverticulosis. Mild compression fracture of T12. Small consolidations are visualized on right middle lobe and lingula suggestive of atelectatic changes. ASSESSMENT: 1. Chronic atrial fibrillation. 2. Coagulopathy on admission with rectal bleeding. 3. Hyperlipidemia. 4. Chronic obstructive lung disease. RECOMMENDATIONS: Continue current IV Lopressor p.r.n., continue Anusol HC, continue IV Protonix at 20 mg twice a day. Obtain an echocardiogram and TSH level. GI consult has been requested. Chacho Brown MD [facility] # [id number]
[2017-08-14] MEDS: Hydrocortisone 2.5% Rectal Cream(30 gm) PR SCH (17:26)
[2017-08-15] MEDS: Sodium Chloride 0.9% 1,000 ML IV SCH (03:34)
[2017-08-15 06:11] LABS: HEMOGLOBIN 10.5 g/dL (12.0-16.0); MEAN CELL VOLUME 81.3 fl (80.0-105.0); MEAN CORPUSCULAR HEMOGLOBIN 25.1 pg (25.0-35.0); MEAN CORPUSCULAR HGB CONC 30.9 g/dl (31.0-37.0); RBC 4.18 10^6/uL (3.5-6.1); RED CELL DISTRIBUTION WIDTH 16.9 % (11.5-14.5); WHITE BLOOD COUNT 7.8 10^3/ul (4.5-11.0)
--- NOTE | 2017-08-15 06:35 | CP.PCM.PN ---
<Zach Antony - Last Filed: 08/15/17 09:08> Subjective - Date & Time of Evaluation Date of Evaluation: 08/15/17 Time of Evaluation: 07:00 - Subjective Subjective: Subjective: Patient seen and examined at bedside. No acute overnight events. As per nurse, patient experienced 2 soft brown nonbloody bowel movements overnight. Patient admits to tolerating diet. Positive for appetite. Denies fever, chills, chest pain, SOB, abdominal pain, nausea, vomiting, diarrhea, and constipation. Physical Examination: - Constitutional Appears: Non-toxic, No Acute Distress - Head Exam Head Exam: ATRAUMATIC, NORMAL INSPECTION, NORMOCEPHALIC - Eye Exam Eye Exam: EOMI - ENT Exam ENT Exam: Mucous Membranes Dry - Respiratory Exam Respiratory Exam: Clear to Auscultation Bilateral, NORMAL BREATHING PATTERN - Cardiovascular Exam Cardiovascular Exam: Irregular Rhythm, +S1, +S2 - GI/Abdominal Exam GI & Abdominal Exam: Normal Bowel Sounds, Soft, absent: Distended, Firm, Guarding, Organomegaly - Extremities Exam Extremities exam: no cyanosis,no clubbing - Neurological Exam Neurological exam: patient is awake, alert, responds to verbal stimuli, and follows commands - Psychiatric Exam Psychiatric exam: Normal Affect, Normal Mood - Skin Skin Exam: Dry, Intact, Normal Color, Warm Assessment and Plan: Patient is a 87 year old female who presented for evaluation and treatment abdominal pain and rectal bleeding. 1. Rectal bleeding 2. Anemia 3. Afib on OAC 4. Supratherpeautic INR- resolved - CT imaging reviewed with stool burden and mild thickening of sigmoid colon - advance as tolerated- goal diet heart healthy - Hgb stable 10.5 from 10.6, ok to restart coumadin - Spoke with son- risks and benefits of colonoscopy thoroughly discussed, decided no colonoscopy at this time - continue with bowel regimen with miralax bid and dulcolax suppository Patient seen, case with, and plan approved by attending physician, Dr. Joseph. Objective - Vital Signs/Intake and Output Vital Signs (last 24 hours): Temp Pulse Resp BP Pulse Ox 98.1 F 76 20 125/49 L 96 08/15/17 05:55 08/15/17 05:55 08/15/17 05:55 08/15/17 05:55 08/15/17 05:55 Intake and Output: 08/14/17 08/15/17 18:59 06:59 Intake Total 800 975 Balance 800 975 - Medications Medications: Current Medications Albuterol/Ipratropium (Duoneb 3 Mg/0.5 Mg (3 Ml) Ud) 3 ml IH Q6H PRN PRN Reason: WHEEZING Docusate Sodium (Colace) 100 mg PO DAILY [facility] Last Admin: 08/14/17 10:13 Dose: 100 mg Guaifenesin (Robitussin) 200 mg PO Q4H PRN PRN Reason: Cough and congestion Last Admin: 08/14/17 14:33 Dose: 200 mg Hydrocortisone (Anusol-Hc) 0 gm [place] BID [facility] Last Admin: 08/14/17 17:26 Dose: 1 applic Sodium Chloride (Sodium Chloride 0.9%) 1,000 mls @ 75 mls/hr IV .[id number] [facility] Last Admin: 08/15/17 03:34 Dose: 75 mls/hr Levofloxacin/Dextrose (Levaquin 750mg) 750 mg in 150 mls @ 100 mls/hr IVPB DAILY [facility] PRN Reason: Protocol Stop: 08/19/17 14:01 Last Admin: 08/14/17 14:31 Dose: 100 mls/hr Metoprolol Tartrate (Lopressor) 5 mg IVP Q6H PRN PRN Reason: Systolic Blood Pressure Pantoprazole Sodium (Protonix Inj) 40 mg IVP Q12 [facility] Last Admin: 08/14/17 21:10 Dose: 40 mg Polyethylene Glycol (Miralax) 17 gm PO BID [facility] Last Admin: 08/14/17 17:26 Dose: Not Given - Labs Labs: 08/15/17 05:30 08/14/17 06:00 PT 15.8 SECONDS (9.4-12.5) H 08/14/17 06:00 INR 1.37 (0.93-1.08) H 08/14/17 06:00 APTT 30.2 Seconds (25.1-36.5) 08/14/17 06:00 <Ben Joseph - Last Filed: 08/15/17 09:47> Objective - Vital Signs/Intake and Output Vital Signs (last 24 hours): Temp Pulse Resp BP Pulse Ox 98.1 F 76 20 125/49 L 96 08/15/17 05:55 08/15/17 05:55 08/15/17 05:55 08/15/17 05:55 08/15/17 05:55 Intake and Output: 08/15/17 08/15/17 06:59 18:59 Intake Total 975 Balance 975 - Medications Medications: Current Medications Albuterol/Ipratropium (Duoneb 3 Mg/0.5 Mg (3 Ml) Ud) 3 ml IH Q6H PRN PRN Reason: WHEEZING Docusate Sodium (Colace) 100 mg PO DAILY [facility] Last Admin: 08/14/17 10:13 Dose: 100 mg Guaifenesin (Robitussin) 200 mg PO Q4H PRN PRN Reason: Cough and congestion Last Admin: 08/14/17 14:33 Dose: 200 mg Hydrocortisone (Anusol-Hc) 0 gm W[place] BID [facility] Last Admin: 08/14/17 17:26 Dose: 1 applic Sodium Chloride (Sodium Chloride 0.9%) 1,000 mls @ 75 mls/hr IV .[id number] [facility] Last Admin: 08/15/17 03:34 Dose: 75 mls/hr Levofloxacin/Dextrose (Levaquin 750mg) 750 mg in 150 mls @ 100 mls/hr IVPB QOTHERDAY [facility] PRN Reason: Protocol Stop: 08/19/17 14:01 Metoprolol Tartrate (Lopressor) 5 mg IVP Q6H PRN PRN Reason: Systolic Blood Pressure Pantoprazole Sodium (Protonix Inj) 40 mg IVP Q12 [facility] Last Admin: 08/14/17 21:10 Dose: 40 mg Polyethylene Glycol (Miralax) 17 gm PO BID [facility] Last Admin: 08/14/17 17:26 Dose: Not Given - Labs Labs: 08/15/17 05:30 08/15/17 05:30 PT 16.5 SECONDS (9.4-12.5) H 08/15/17 06:40 INR 1.42 (0.93-1.08) H 08/15/17 06:40 APTT 26.0 Seconds (25.1-36.5) 08/15/17 06:40 Attending/Attestation - Attestation I have personally seen and examined this patient.: Yes I have fully participated in the care of the patient.: Yes I have reviewed all pertinent clinical information, including history, physical exam and plan: Yes Notes (Text): 08/15/17 09:42 I have seen and examined patient with GI fellow and medical care evaluation specialist. No acute events overnight, she is seen resting in bed comfortably. She denies abdominal pain, nausea, vomiting, or recurrent episodes of rectal bleeding. Tolerating PO liquids without difficulty, asking for her diet to be advanced. Review of vitals from today are normal. Atrial fibrillation on coumadin (held) DM CVA Rectal bleeding - resolved - Advance diet as tolerated - Resumption of anti-coagulation therapy as per medical team - Follow up cardiology recommendations - H/H stable, continue to monitor - Maintain bowel regimen to prevent recurrent constipation - Case was discussed in detail with patient's son Kalen via telephone including risks/benefits of potential invasive endoscopic intervention. At this time, he wishes to defer any procedures and continue with conservative management. This is reasonable given advanced patient age, medical comorbidities, and current hemodynamic stability without recurrent bleeding noted. - No further planned GI interventions, will sign off case. Patient will be given GI contact information for follow up in [place] as per son's wishes. Please reconsult as necessary, thank you.
[2017-08-15 07:17] LABS: ALBUMIN 2.9 g/dL (3.0-4.8); ALT/SGPT 30 U/L (7-56); AST/SGOT 33 U/L (14-36); BLOOD UREA NITROGEN 9 mg/dL (7-21); CALCIUM 8.8 mg/dL (8.4-10.5); GFR NON-AFRICAN AMERICAN > 60
[2017-08-15 07:22] LABS: INR 1.42 (0.93-1.08); PROTHROMBIN TIME 16.5 SECONDS (9.4-12.5)
[2017-08-15] MEDS ORDERED: levoFLOXacin 750 mg in D5W 750 MG/150 ML BAG IVPB SCH (09:41)
[2017-08-15] MEDS: POLYETHYLENE GLYCOL 3350 17 GM/Dose PACKET PO SCH ×2 (10:34→17:51)
[2017-08-15] MEDS: Hydrocortisone 2.5% Rectal Cream(30 gm) PR SCH (10:35)
[2017-08-15] MEDS ORDERED: Potassium Chloride 20 mEq ER Tab PO ONE ×3 (11:57→18:00)
--- NOTE | 2017-08-15 14:19 | CP.PCM.PN ---
<Lolis Salamanca - Last Filed: 08/15/17 14:27> Subjective - Date & Time of Evaluation Date of Evaluation: 08/15/17 Time of Evaluation: 14:15 - Subjective Subjective: Lolis Salamanca, PGY1, Progress Note for Dr Burkett: Patient seen and examined at bedside. No acute events overnight. Pt reports 2 soft brown stools overnight, nonbloody. Denies hematochezia or melena, cp, sob, focal neurologic deficits, abdominal pain, urinary symptoms, leg swelling. Objective - Vital Signs/Intake and Output Vital Signs (last 24 hours): Temp Pulse Resp BP Pulse Ox 98.1 F 77 20 125/49 L 96 08/15/17 05:55 08/15/17 10:00 08/15/17 05:55 08/15/17 05:55 08/15/17 05:55 Intake and Output: 08/15/17 08/15/17 06:59 18:59 Intake Total 975 Balance 975 - Medications Medications: Current Medications Albuterol/Ipratropium (Duoneb 3 Mg/0.5 Mg (3 Ml) Ud) 3 ml IH Q6H PRN PRN Reason: WHEEZING Docusate Sodium (Colace) 100 mg PO DAILY [facility] Last Admin: 08/15/17 10:34 Dose: 100 mg Guaifenesin (Robitussin) 200 mg PO Q4H PRN PRN Reason: Cough and congestion Last Admin: 08/14/17 14:33 Dose: 200 mg Hydrocortisone (Anusol-Hc) 0 gm [place] BID [facility] Last Admin: 08/15/17 10:35 Dose: 1 applic Levofloxacin/Dextrose (Levaquin 750mg) 750 mg in 150 mls @ 100 mls/hr IVPB QOTHERDAY [facility] PRN Reason: Protocol Stop: 08/19/17 14:01 Last Admin: 08/15/17 10:35 Dose: 100 mls/hr Metoprolol Tartrate (Lopressor) 25 mg PO BID [facility] Pantoprazole Sodium (Protonix Ec Tab) 40 mg PO Q12 [facility] Polyethylene Glycol (Miralax) 17 gm PO BID [facility] Last Admin: 08/15/17 10:34 Dose: 17 gm Potassium Chloride (K-Dur 20 Meq Er Tab) 40 meq PO ONCE ONE Stop: 08/15/17 14:16 Warfarin Sodium (Coumadin) 3 mg PO 1800 [facility] PRN Reason: Protocol - Labs Labs: 08/15/17 05:30 08/15/17 05:30 PT 16.5 SECONDS (9.4-12.5) H 08/15/17 06:40 INR 1.42 (0.93-1.08) H 08/15/17 06:40 APTT 26.0 Seconds (25.1-36.5) 08/15/17 06:40 - Additional Findings Additional findings: - Constitutional Appears: Non-toxic, No Acute Distress - Head Exam Head Exam: ATRAUMATIC, NORMOCEPHALIC - Eye Exam Eye Exam: EOMI, PERRL. absent: Conjunctival injection, Nystagmus, Scleral icterus Pupil Exam: NORMAL ACCOMODATION, PERRL. absent: Fixed, Irregular, Unequal - ENT Exam ENT Exam: Mucous Membranes Moist - Neck Exam Neck Exam: Full ROM - Respiratory Exam Respiratory Exam: Clear to Ausculation Bilateral, NORMAL BREATHING PATTERN. absent: Accessory Muscle Use, Wheezes, Respiratory Distress - Cardiovascular Exam Cardiovascular Exam: RRR, +S1, +S2. absent: Murmur - GI/Abdominal Exam GI & Abdominal Exam: Soft, Normal Bowel Sounds. absent: Distended, Firm, Guarding, Rigid, Tenderness, Mass, Organomegaly - Extremities Exam Extremities Exam: Normal Inspection. absent: Calf Tenderness, Pedal Edema - Back Exam Back Exam: NORMAL INSPECTION - Neurological Exam Neurological Exam: Alert, Awake, Oriented x3 - Psychiatric Exam Psychiatric exam: Normal Affect, Normal Mood - Skin Skin Exam: Dry, Normal Color, Warm Assessment and Plan - Assessment and Plan (Free Text) Assessment: 87 year old Yi speaking female with a PMH of HTN, HLD, dementia, hemorrhoids s/p banding approx 30 yrs ago, CHF EF 60%, cva x 5 and persistent A. fib on coumadin, admitted for lower GI bleed 2/2 likely supratherapeutic INR : Hematochezia: 2/2 likely supratherapeutic INR (diverticular bleeding) vs less likely ischemic colitis vs sigmoid mass lesion vs AVM - CT abd pelvis shows few segments of wall thickening involving sigmoid colon - incomplete distention or colitis? fecal distention of colitis, compression fx of T12 - GI consulted Dr Thacker. appreciate recs. No acute GI intervention. - INR subtheraptuic today. resumed Coumadin at lower dose, 3 mg. - Advanced to Heart healthy diet. - Pt has a hx of hemorrhoids. Avoid straining. On bowel regimen: miralax bid, coalce, anusol - Protonix 40mg Cough: 2/2 CAP - CT chest shows right middle lobe and lingular infiltrates vs atelectasis - CXR shows calcified granuloma, bibasilar atelectasis, no infiltrates, poor quality - afebrile, no leukocytosis - productive cough, clear sputum - Levaquin - decreased reactivity with Coumadin - robitussin, incentive spirometer use - duonebs q6 prn - On RA. maintain 02 sat >92% - monitor HTN: - stable - hold home meds - lopressor 5mg q6h prn Hx of A.fib: - INR subtherapeutic today - restarted warfarin 3 mg. Home regimen: 4 mg on weekdays and 5 mg on weekends. - CHADSVASC 6, Hasbled 3 - Cardio consulted. f/u recs - F/u echo - monitor - lopressor 5 mg q6h prn PPX: warfarin, protonix Case seen, reviewed and discussed with Dr. Burkett. Lolis Salamanca, PGY1 <Anna Burkett - Last Filed: 08/15/17 16:14> Objective - Vital Signs/Intake and Output Vital Signs (last 24 hours): Temp Pulse Resp BP Pulse Ox 98.1 F 64 20 147/70 96 08/15/17 05:55 08/15/17 14:12 08/15/17 05:55 08/15/17 14:12 08/15/17 05:55 Intake and Output: 08/15/17 08/15/17 06:59 18:59 Intake Total 975 Balance 975 - Medications Medications: Current Medications Albuterol/Ipratropium (Duoneb 3 Mg/0.5 Mg (3 Ml) Ud) 3 ml IH Q6H PRN PRN Reason: WHEEZING Docusate Sodium (Colace) 100 mg PO DAILY [facility] Last Admin: 08/15/17 10:34 Dose: 100 mg Guaifenesin (Robitussin) 200 mg PO Q4H PRN PRN Reason: Cough and congestion Last Admin: 08/14/17 14:33 Dose: 200 mg Hydrocortisone (Anusol-Hc) 0 gm MS BID [facility] Last Admin: 08/15/17 10:35 Dose: 1 applic Levofloxacin/Dextrose (Levaquin 750mg) 750 mg in 150 mls @ 100 mls/hr IVPB QOTHERDAY [facility] PRN Reason: Protocol Stop: 08/19/17 14:01 Last Admin: 08/15/17 10:35 Dose: 100 mls/hr Metoprolol Tartrate (Lopressor) 25 mg PO BID [facility] Last Admin: 08/15/17 14:12 Dose: 25 mg Pantoprazole Sodium (Protonix Ec Tab) 40 mg PO DAILY [facility] Polyethylene Glycol (Miralax) 17 gm PO BID [facility] Last Admin: 08/15/17 10:34 Dose: 17 gm Warfarin Sodium (Coumadin) 3 mg PO 1800 [facility] PRN Reason: Protocol - Labs Labs: 08/15/17 05:30 08/15/17 05:30 PT 16.5 SECONDS (9.4-12.5) H 08/15/17 06:40 INR 1.42 (0.93-1.08) H 08/15/17 06:40 APTT 26.0 Seconds (25.1-36.5) 08/15/17 06:40 Attending/Attestation - Attestation I have personally seen and examined this patient.: Yes I have fully participated in the care of the patient.: Yes I have reviewed all pertinent clinical information, including history, physical exam and plan: Yes Notes (Text): 08/15/17 16:11 attending note; Patient seen and examined with resident. Patient's son by the bedside. Patient is a 87 year old [place] female with past medical history of hypertension, CVA, afib on coumadin, and dyslipidemia who presented with complaint of blood in stools. INR was also supratherapeutic for which patient received Vitamin K. CT abd/pelvis was done which shows fecal distention, mild colon wall thickening and diverticulosis. currently no bleeding. INR is 1.4. GI evaluation appreciated. Son refused colonoscopy. Started on Coumadin. Started on regular diet. Continue with protonix. Started on miralax and dulcolax. Dietitian evaluation requested. cardiology Evaluation appreciated. Patient has mild leukocytosis and cough. CT showed right middle lobe and lingulair consolidation. currently on levofloxacin. PT evaluation requested. Possible discharge home tomorrow if clinically stable. Upon discharge the patient will follow-up with PMD Dr. Howell in [place]. the diagnosis, follow-up plan discussed with patient in detail. 08/15/17 16:14
--- NOTE | 2017-08-15 16:04 | PN ---
DATE: 08/15/2017 REASON FOR THE CONSULTATION AND FOLLOWUP: Chronic atrial fibrillation, coagulopathy, rectal bleed, admitting INR 5.51 and admitting hemoglobin 12.4. SUBJECTIVE: The patient denies any chest pain, shortness of breath, any palpitation. Denies any further episode of rectal bleeding. OBJECTIVE: GENERAL: Not in any apparent distress, lying flat on the bed. VITAL SIGNS: Temperature afebrile, heart rate 76, blood pressure 125/49. HEENT: PERRLA. Extraocular muscles intact. NECK: Supple. No carotid bruit. No thyromegaly. CHEST: Clear to auscultation. HEART: S1 and S2 regular. ABDOMEN: Soft. EXTREMITIES: Clubbing and cyanosis negative. LABORATORY DATA: Blood workup as follows; WBC 7.8, hemoglobin 10.5, hematocrit 34, platelet count 318. INR today is 1.42. Chemistry shows sodium 145, potassium 3.4, chloride 109, carbon dioxide 29, anion gap of 10, BUN 9, creatinine 0.7. Troponin 0.01. TSH 0.04. IMPRESSION: Chronic atrial fibrillation, coagulopathy, rectal bleed, hyperlipidemia, chronic obstructive pulmonary disease, chronic diverticular disease, mild compression fracture of T12. Rule out right lower lobe pneumonia. RECOMMENDATIONS: Change to p.o. medications once the p.o. is started. We will change the metoprolol to p.o. and continue amlodipine. Hold Coumadin. Once the patient become stable and GI workup is negative, then restart Coumadin. We will discontinue Telemetry. We will see if no recent echocardiogram was done, we will repeat the echo to assess LV function. Thank you, Dr. Winkler, for providing us the opportunity in taking care of Rafi Johnson. We will follow with you. Clyde Haynes MD
--- NOTE | 2017-08-15 16:15 | CARD ---
APPROVED REPORT EXAM: Two-dimensional and M-mode echocardiogram with Doppler and color Doppler. INDICATION Atrial Fibrillation 2D DIMENSIONS Left Atrium (2D)5.5 (1.6-4.0cm)IVSd0.9 (0.7-1.1cm) LVDd3.8 (3.9-5.9cm)PWd1.0 (0.7-1.1cm) LVDs2.6 (2.5-4.0cm)FS (%) 31.6 % LVEF (%)60.4 (>50%) M-Mode DIMENSIONS Aortic Root2.90 (2.2-3.7cm)Aortic Cusp Exc.1.50 (1.5-2.0cm) Aortic Valve AoV Peak Pjxpeqrc184.0cm/Bhargavi Peak GR.7mmHgLVOT Peak Pmlprxfn36.9cm/s LVOT VTI12.90cm Mitral Valve E/A ratio0.0 TDI E/Lateral E'0.0E/Medial E'0.0 Pulmonary Valve PV Peak Kozbletv61.1cm/sPV Peak Grad.2mmHg Tricuspid Valve TR Peak Shsrkmvc274md/sRAP [id number] Peak Gr.32mmHg [id number] LEFT VENTRICLE The left ventricle is normal size. There is normal left ventricular wall thickness. The left ventricular function is normal. The left ventricular ejection fraction is within the normal range. There is normal LV segmental wall motion. RIGHT VENTRICLE The right ventricle is normal size. There is normal right ventricular wall thickness. The right ventricular systolic function is normal. ATRIA The left atrium is moderately dilated. The right atrium is mildly dilated. AORTIC VALVE The aortic valve is not well visualized. No aortic regurgitation is present. There is no aortic valvular stenosis. MITRAL VALVE The mitral valve is mildly thickened. Mitral regurgitation is mild. TRICUSPID VALVE There is mild tricuspid regurgitation. There is mild pulmonary hypertension. GREAT VESSELS The aortic root is normal in size. PERICARDIAL EFFUSION There is no pericardial effusion. <Conclusion> The left ventricle is normal size. There is normal left ventricular wall thickness. The left ventricular function is normal. The left ventricular ejection fraction is within the normal range. Mitral regurgitation is mild. There is mild tricuspid regurgitation. There is mild pulmonary hypertension.
[2017-08-15] MEDS ORDERED: Pantoprazole 40 mg EC Tab PO SCH (22:00)
[2017-08-16] MEDS: Pantoprazole 40 mg EC Tab PO SCH (05:53)
--- NOTE | 2017-08-16 07:16 | CP.PCM.PN ---
Subjective - Date & Time of Evaluation Date of Evaluation: 08/16/17 Time of Evaluation: 06:35 - Subjective Subjective: Awake,sitting at side of bed, denies chest pain, denies shortness of breath Reason for consultation and follow up: Cardiac evaluation, history of Atrial fibrillation on coumadin, CVA x 5 episodes,hypertension, hyperlipidemia, hemorrhoids with banding Seen and examined by me and Dr. Haynes Objective - Vital Signs/Intake and Output Vital Signs (last 24 hours): Temp Pulse Resp BP Pulse Ox 97 F L 73 20 154/85 H 96 08/15/17 22:52 08/15/17 22:52 08/15/17 22:52 08/15/17 22:52 08/15/17 22:52 Intake and Output: 08/16/17 08/16/17 06:59 18:59 Intake Total 360 Balance 360 - Medications Medications: Current Medications Albuterol/Ipratropium (Duoneb 3 Mg/0.5 Mg (3 Ml) Ud) 3 ml IH Q6H PRN PRN Reason: WHEEZING Last Admin: 08/15/17 22:40 Dose: 3 ml Docusate Sodium (Colace) 100 mg PO DAILY [facility] Last Admin: 08/15/17 10:34 Dose: 100 mg Guaifenesin (Robitussin) 200 mg PO Q4H PRN PRN Reason: Cough and congestion Last Admin: 08/14/17 14:33 Dose: 200 mg Hydrocortisone (Anusol-Hc) 0 gm [place] BID [facility] Last Admin: 08/15/17 10:35 Dose: 1 applic Levofloxacin/Dextrose (Levaquin 750mg) 750 mg in 150 mls @ 100 mls/hr IVPB QOTHERDAY [facility] PRN Reason: Protocol Stop: 08/19/17 14:01 Last Admin: 08/15/17 10:35 Dose: 100 mls/hr Metoprolol Tartrate (Lopressor) 25 mg PO BID [facility] Last Admin: 08/15/17 17:51 Dose: 25 mg Pantoprazole Sodium (Protonix Ec Tab) 40 mg PO 0600 [facility] Last Admin: 08/16/17 05:53 Dose: 40 mg Polyethylene Glycol (Miralax) 17 gm PO BID [facility] Last Admin: 08/15/17 17:51 Dose: 17 gm Warfarin Sodium (Coumadin) 3 mg PO 1800 [facility] PRN Reason: Protocol Last Admin: 08/15/17 17:51 Dose: 3 mg - Labs Labs: 08/15/17 05:30 08/15/17 05:30 PT 16.5 SECONDS (9.4-12.5) H 08/15/17 06:40 INR 1.42 (0.93-1.08) H 08/15/17 06:40 APTT 26.0 Seconds (25.1-36.5) 08/15/17 06:40 - Constitutional Appears: No Acute Distress - Head Exam Head Exam: NORMOCEPHALIC - Eye Exam Eye Exam: Normal appearance - ENT Exam ENT Exam: Mucous Membranes Moist - Respiratory Exam Respiratory Exam: Clear to Ausculation Bilateral, NORMAL BREATHING PATTERN - Cardiovascular Exam Cardiovascular Exam: +S1, +S2 Additional comments: Afib 70's - GI/Abdominal Exam GI & Abdominal Exam: Soft, Normal Bowel Sounds - Neurological Exam Neurological Exam: Alert, Awake, Oriented x3 - Psychiatric Exam Psychiatric exam: Normal Affect, Normal Mood - Skin Skin Exam: Intact, Normal Color, Warm Assessment and Plan - Assessment and Plan (Free Text) Assessment: A 87 year old female who came in to the ER due to bloody stools as per son. History of Atrial fibrillation on coumadin, CVA x 5 episodes,hypertension, hyperlipidemia, hemorrhoids with banding, CHF, Plan: ECHO done yesterday LVEF 60%, mild MR and TR INR 1.42, restarted Coumadin Monitor hemoglobin and hematocrit Watch out for further rectal bleeding GI on consult On Lopressor 25 mg BID, Coumadin at 3mg daily Atrial fibrillation well controlled, discontinued telemetry Continue current medications Continue current treatment Will closely follow up Plan and treatment discussed with Dr. Haynes
[2017-08-16 07:32] LABS: HEMOGLOBIN 11.2 g/dL (12.0-16.0); MEAN CELL VOLUME 81.4 fl (80.0-105.0); MEAN CORPUSCULAR HEMOGLOBIN 25.1 pg (25.0-35.0); MEAN CORPUSCULAR HGB CONC 30.9 g/dl (31.0-37.0); RBC 4.46 10^6/uL (3.5-6.1); RED CELL DISTRIBUTION WIDTH 16.9 % (11.5-14.5); WHITE BLOOD COUNT 9.7 10^3/ul (4.5-11.0)
[2017-08-16 07:46] LABS: INR 1.49 (0.93-1.08); PARTIAL THROMBOPLASTIN TIME 27.6 Seconds (25.1-36.5); PROTHROMBIN TIME 17.3 SECONDS (9.4-12.5)
[2017-08-16 08:00] LABS: ALB/GLOB RATIO 1.1 (1.1-1.8); ALBUMIN 3.4 g/dL (3.0-4.8); ALT/SGPT 28 U/L (7-56); AST/SGOT 27 U/L (14-36); BLOOD UREA NITROGEN 9 mg/dL (7-21); CALCIUM 9.5 mg/dL (8.4-10.5); GFR NON-AFRICAN AMERICAN > 60
[2017-08-16] MEDS: guaiFENesin 200 mg/10 ml Syrup UD PO PRN (08:11)
[2017-08-16 08:32] LABS: FREE T4 1.95 ng/dL (0.78-2.19)
[2017-08-16] MEDS: POLYETHYLENE GLYCOL 3350 17 GM/Dose PACKET PO SCH ×2 (09:38→18:16)
[2017-08-16] MEDS: Magnesium Oxide 400 mg Tab UD PO SCH ×2 (09:38→18:16)
[2017-08-16] MEDS: Hydrocortisone 2.5% Rectal Cream(30 gm) PR SCH ×2 (09:39→18:17)
[2017-08-16] MEDS ORDERED: levoFLOXacin 750 mg in D5W 750 MG/150 ML BAG IVPB SCH (10:00)
--- NOTE | 2017-08-16 10:43 | CP.PCM.PN ---
<Lolis Salamanca - Last Filed: 08/16/17 10:35> Subjective - Date & Time of Evaluation Date of Evaluation: 08/16/17 Time of Evaluation: 10:35 - Subjective Subjective: Lolis Salamanca, PGY1, Progress Note for Dr Burkett: Patient seen and examined at bedside. No acute events overnight. Pt states that she is hungry. Complains of persistent cough, and left sided lower rib pain. Son at bedside, updated on patient's condition. Denies further bloody bowel movements, cp, sob, focal neurologic deficits, abdominal pain, urinary symptoms , leg swelling. Objective - Vital Signs/Intake and Output Vital Signs (last 24 hours): Temp Pulse Resp BP Pulse Ox 98 F 70 20 138/79 100 08/16/17 06:00 08/16/17 06:00 08/16/17 06:00 08/16/17 06:00 08/16/17 06:00 Intake and Output: 08/16/17 08/16/17 06:59 18:59 Intake Total 360 0 Balance 360 0 - Medications Medications: Current Medications Albuterol/Ipratropium (Duoneb 3 Mg/0.5 Mg (3 Ml) Ud) 3 ml IH Q6H [facility] Diltiazem HCl (Cardizem Cd) 180 mg PO DAILY [facility] Docusate Sodium (Colace) 100 mg PO DAILY [facility] Last Admin: 08/16/17 09:39 Dose: 100 mg Guaifenesin/Codeine Phosphate (Robitussin W/Codeine) 5 ml PO Q6H [facility] Hydrocortisone (Anusol-Hc) 0 gm SC BID [facility] Last Admin: 08/16/17 09:39 Dose: 1 applic Levofloxacin/Dextrose (Levaquin 750mg) 750 mg in 150 mls @ 100 mls/hr IVPB Q48H [facility] PRN Reason: Protocol Magnesium Oxide (Mag-Ox) 400 mg PO BID [facility] Stop: 08/16/17 23:59 Last Admin: 08/16/17 09:38 Dose: 400 mg Memantine (Namenda) 10 mg PO BID [facility] Metoprolol Tartrate (Lopressor) 25 mg PO BID [facility] Last Admin: 08/15/17 17:51 Dose: 25 mg Non-Formulary Medication (Multivit-Min/Fa/Lycopen/Lutein [Centrum Silver Tablet] ) 1 tab PO DAILY [facility] Non-Formulary Medication (Simvastatin [Zocor]) 10 mg PO HS [facility] Pantoprazole Sodium (Protonix Ec Tab) 40 mg PO 0600 [facility] Last Admin: 08/16/17 05:53 Dose: 40 mg Polyethylene Glycol (Miralax) 17 gm PO BID [facility] Last Admin: 08/16/17 09:38 Dose: 17 gm Warfarin Sodium (Coumadin) 5 mg PO 1800 [facility] PRN Reason: Protocol - Labs Labs: 08/16/17 07:00 08/16/17 07:00 PT 17.3 SECONDS (9.4-12.5) H 08/16/17 07:00 INR 1.49 (0.93-1.08) H 08/16/17 07:00 APTT 27.6 Seconds (25.1-36.5) 08/16/17 07:00 - Additional Findings Additional findings: - Constitutional Appears: Non-toxic, No Acute Distress - Head Exam Head Exam: ATRAUMATIC, NORMOCEPHALIC - Eye Exam Eye Exam: EOMI, PERRL. absent: Conjunctival injection, Nystagmus, Scleral icterus Pupil Exam: NORMAL ACCOMODATION, PERRL. absent: Fixed, Irregular, Unequal - ENT Exam ENT Exam: Mucous Membranes Moist - Neck Exam Neck Exam: Full ROM - Respiratory Exam Respiratory Exam: Clear to Ausculation Bilateral, NORMAL BREATHING PATTERN. + left and right lower rib tenderness. absent: Accessory Muscle Use, Wheezes, Respiratory Distress - Cardiovascular Exam Cardiovascular Exam: RRR, +S1, +S2. absent: Murmur - GI/Abdominal Exam GI & Abdominal Exam: Soft, Normal Bowel Sounds. absent: Distended, Firm, Guarding, Rigid, Tenderness, Mass, Organomegaly - Extremities Exam Extremities Exam: Normal Inspection. absent: Calf Tenderness, Pedal Edema - Back Exam Back Exam: NORMAL INSPECTION - Neurological Exam Neurological Exam: Alert, Awake, Oriented x3 - Psychiatric Exam Psychiatric exam: Normal Affect, Normal Mood - Skin Skin Exam: Dry, Normal Color, Warm Assessment and Plan - Assessment and Plan (Free Text) Assessment: 87 year old Greek speaking female with a PMH of HTN, HLD, dementia, hemorrhoids s/p banding approx 30 yrs ago, CHF EF 60%, cva x 5 and persistent A. fib on coumadin, admitted for lower GI bleed 2/2 likely supratherapeutic INR : Hematochezia, resolved: 2/2 likely supratherapeutic INR (diverticular bleeding) vs less likely ischemic colitis vs sigmoid mass lesion vs AVM - CT abd pelvis shows few segments of wall thickening involving sigmoid colon - incomplete distention or colitis? fecal distention of colitis, compression fx of T12 - GI consulted Dr Thacker. appreciate recs. No acute GI intervention. Discussed with son. - Heart healthy diet. - Hgb stable, no further bleeding episodes. - Pt has a hx of hemorrhoids. Avoid straining. On bowel regimen: miralax bid, coalce, anusol - Protonix 40mg Cough: 2/2 CAP - CT chest shows right middle lobe and lingular infiltrates vs atelectasis - CXR shows calcified granuloma, bibasilar atelectasis, no infiltrates, poor quality - afebrile, no leukocytosis - productive cough, clear sputum - Levaquin q48 h, renally dosed - decreased reactivity with Coumadin - robitussin with codeine, incentive spirometer use - duonebs q6 sharon - On RA. maintain 02 sat >92% - monitor HTN: - stable - on metoprolol [address] Haynes - Son wants home cardizem continued here instead. WILL Discuss with Cardiology. Hx of A.fib: - INR subtherapeutic today - increased warfarin 5 mg. Home regimen: 4 mg on weekdays and 5 mg on weekends. - CHADSVASC 6, Hasbled 3 - Cardio consulted. f/u recs - echo EF 66%. Mild TR, pulm HTN. - metoprolol 25 bid PO. Discuss with Cardio regarding starting home cardizem 180 mg. - monitor PPX: warfarin, protonix Dispo: PT EVAL pending. Son is amenable to [facility] if patient needs it. Case seen, reviewed and discussed with Dr. Burkett. Lolis Salamanca, PGY1 <Anna Burkett - Last Filed: 08/16/17 15:28> Objective - Vital Signs/Intake and Output Vital Signs (last 24 hours): Temp Pulse Resp BP Pulse Ox 98 F 70 20 138/79 100 08/16/17 06:00 08/16/17 06:00 08/16/17 06:00 08/16/17 06:00 08/16/17 06:00 Intake and Output: 08/16/17 08/16/17 06:59 18:59 Intake Total 360 480 Balance 360 480 - Medications Medications: Current Medications Albuterol/Ipratropium (Duoneb 3 Mg/0.5 Mg (3 Ml) Ud) 3 ml IH Q6H [facility] Last Admin: 08/16/17 11:24 Dose: Not Given Atorvastatin Calcium (Lipitor) 10 mg PO HS [facility] Diltiazem HCl (Cardizem Cd) 180 mg PO DAILY [facility] Last Admin: 08/16/17 13:21 Dose: 180 mg Docusate Sodium (Colace) 100 mg PO DAILY [facility] Last Admin: 08/16/17 09:39 Dose: 100 mg Guaifenesin/Codeine Phosphate (Robitussin W/Codeine) 5 ml PO Q6H [facility] Last Admin: 08/16/17 13:22 Dose: Not Given Hydrocortisone (Anusol-Hc) 0 gm SC BID [facility] Last Admin: 08/16/17 09:39 Dose: 1 applic Levofloxacin/Dextrose (Levaquin 750mg) 750 mg in 150 mls @ 100 mls/hr IVPB Q48H [facility] PRN Reason: Protocol Last Admin: 08/16/17 13:21 Dose: 100 mls/hr Magnesium Oxide (Mag-Ox) 400 mg PO BID [facility] Stop: 08/16/17 23:59 Last Admin: 08/16/17 09:38 Dose: 400 mg Memantine (Namenda) 10 mg PO BID [facility] Last Admin: 08/16/17 13:21 Dose: 10 mg Multivitamins/Minerals (Therapeutic-M Tab) 1 tab PO DAILY [facility] Pantoprazole Sodium (Protonix Ec Tab) 40 mg PO 0600 [facility] Last Admin: 08/16/17 05:53 Dose: 40 mg Polyethylene Glycol (Miralax) 17 gm PO BID [facility] Last Admin: 08/16/17 09:38 Dose: 17 gm Warfarin Sodium (Coumadin) 5 mg PO 1800 [facility] PRN Reason: Protocol - Labs Labs: 08/16/17 07:00 08/16/17 07:00 PT 17.3 SECONDS (9.4-12.5) H 08/16/17 07:00 INR 1.49 (0.93-1.08) H 08/16/17 07:00 APTT 27.6 Seconds (25.1-36.5) 08/16/17 07:00 Attending/Attestation - Attestation I have personally seen and examined this patient.: Yes I have fully participated in the care of the patient.: Yes I have reviewed all pertinent clinical information, including history, physical exam and plan: Yes Notes (Text): 08/16/17 15:26 attending note; Patient seen and examined with resident. Patient is complaining of cough/pleuritic chest pain on the left side rib area. Patient's son by the bedside. Patient is a 87 year old [place] female with past medical history of hypertension, CVA, afib on coumadin, and dyslipidemia who presented with complaint of blood in stools. INR was also supratherapeutic for which patient received Vitamin K. CT abd/pelvis was done which shows fecal distention, mild colon wall thickening and diverticulosis. currently no bleeding. INR is 1.49. GI evaluation appreciated. Started on Coumadin. Started on regular diet. Continue with protonix. Started on miralax and dulcolax. Dietitian evaluation appreciated. Patient has mild leukocytosis and cough. CT showed right middle lobe and lingulair consolidation. currently on levofloxacin. pleuritic Pain; started on Robitussin with codeine. Rib x-ray is negative. Bilateral atelectasis noted. PT evaluation appreciated. Possible discharge home tomorrow if clinically stable. Upon discharge the patient will follow-up with PMD Dr. Howell in [place]. the diagnosis, follow-up plan discussed with patient in detail. 08/16/17 15:27
[2017-08-16] MEDS: Albuterol-Ipratrop 3 mg / 0.5 (3 ml) UD IH SCH ×2 (11:24→20:41)
[2017-08-16] MEDS: diltiaZEM 180 mg/24 Hours CD Cap PO SCH (13:21)
[2017-08-16] MEDS: guaiFENesin-Codeine 100-10mg/5ml Syrup (5 ml) UD PO SCH ×3 (13:22→21:46)
--- NOTE | 2017-08-16 13:52 | RAD ---
PROCEDURE: Radiographs of the chest and bilateral ribs HISTORY: rib pain COMPARISON: None available. TECHNIQUE: Frontal radiograph of the chest and multiple oblique radiographs of the bilateral ribs were obtained. FINDINGS: RIGHT RIBS: No fracture or focal lesion visualized. LEFT RIBS: No fracture or focal lesion visualized. LUNGS: Minimal bibasilar atelectasis PLEURA: No pneumothorax or pleural fluid. CARDIOVASCULAR: Normal sized heart. No pulmonary vascular congestion. OTHER FINDINGS: None. IMPRESSION: Unremarkable radiographs of the chest and bilateral ribs. No rib fracture.
[2017-08-16] MEDS: Multivitamin With Minerals Tab PO SCH (21:53)
[2017-08-17] MEDS: Albuterol-Ipratrop 3 mg / 0.5 (3 ml) UD IH SCH ×4 (01:37→19:56)
[2017-08-17] MEDS: guaiFENesin-Codeine 100-10mg/5ml Syrup (5 ml) UD PO SCH ×3 (05:22→17:34)
[2017-08-17] MEDS: Pantoprazole 40 mg EC Tab PO SCH (05:23)
--- NOTE | 2017-08-17 06:01 | CP.PCM.PN ---
Subjective - Date & Time of Evaluation Date of Evaluation: 08/17/17 Time of Evaluation: 06:30 - Subjective Subjective: Sleeping but easily awaken, denies chest pain, denies shortness of breath Reason for consultation and follow up: Cardiac evaluation, history of Atrial fibrillation on coumadin, CVA x 5 episodes,hypertension, hyperlipidemia, hemorrhoids with banding Seen and examined by me and Dr. Haynes Objective - Vital Signs/Intake and Output Vital Signs (last 24 hours): Temp Pulse Resp BP Pulse Ox 98.3 F 100 H 18 138/53 L 96 08/16/17 21:25 08/16/17 21:25 08/16/17 21:25 08/16/17 21:25 08/16/17 21:25 Intake and Output: 08/16/17 08/17/17 18:59 06:59 Intake Total 480 Balance 480 - Medications Medications: Current Medications Albuterol/Ipratropium (Duoneb 3 Mg/0.5 Mg (3 Ml) Ud) 3 ml IH Q6H [facility] Last Admin: 08/17/17 01:37 Dose: 3 ml Atorvastatin Calcium (Lipitor) 10 mg PO HS [facility] Last Admin: 08/16/17 21:46 Dose: Not Given Diltiazem HCl (Cardizem Cd) 180 mg PO DAILY [facility] Last Admin: 08/16/17 13:21 Dose: 180 mg Docusate Sodium (Colace) 100 mg PO DAILY [facility] Last Admin: 08/16/17 09:39 Dose: 100 mg Guaifenesin/Codeine Phosphate (Robitussin W/Codeine) 5 ml PO Q6H [facility] Last Admin: 08/17/17 05:22 Dose: Not Given Hydrocortisone (Anusol-Hc) 0 gm DE BID [facility] Last Admin: 08/16/17 18:17 Dose: 1 applic Levofloxacin/Dextrose (Levaquin 750mg) 750 mg in 150 mls @ 100 mls/hr IVPB Q48H [facility] PRN Reason: Protocol Last Admin: 08/16/17 13:21 Dose: 100 mls/hr Memantine (Namenda) 10 mg PO BID [facility] Last Admin: 08/16/17 18:16 Dose: 10 mg Multivitamins/Minerals (Therapeutic-M Tab) 1 tab PO DAILY [facility] Last Admin: 08/16/17 21:53 Dose: Not Given Pantoprazole Sodium (Protonix Ec Tab) 40 mg PO 0600 [facility] Last Admin: 08/17/17 05:23 Dose: Not Given Polyethylene Glycol (Miralax) 17 gm PO BID [facility] Last Admin: 08/16/17 18:16 Dose: 17 gm Warfarin Sodium (Coumadin) 5 mg PO 1800 [facility] PRN Reason: Protocol Last Admin: 08/16/17 18:15 Dose: 5 mg - Labs Labs: 08/16/17 07:00 08/16/17 07:00 PT 17.3 SECONDS (9.4-12.5) H 08/16/17 07:00 INR 1.49 (0.93-1.08) H 08/16/17 07:00 APTT 27.6 Seconds (25.1-36.5) 08/16/17 07:00 - Constitutional Appears: No Acute Distress - Head Exam Head Exam: NORMOCEPHALIC - ENT Exam ENT Exam: Mucous Membranes Moist - Respiratory Exam Respiratory Exam: Decreased Breath Sounds, Rhonchi, NORMAL BREATHING PATTERN - Cardiovascular Exam Cardiovascular Exam: +S1, +S2 - GI/Abdominal Exam GI & Abdominal Exam: Soft, Normal Bowel Sounds - Extremities Exam Extremities Exam: Normal Capillary Refill - Neurological Exam Neurological Exam: Alert, Awake - Psychiatric Exam Psychiatric exam: Normal Affect, Normal Mood - Skin Skin Exam: Intact, Normal Color, Warm Assessment and Plan - Assessment and Plan (Free Text) Assessment: A 87 year old female who came in to the ER due to bloody stools as per son. History of Atrial fibrillation on coumadin, CVA x 5 episodes,hypertension, hyperlipidemia, hemorrhoids with banding, CHF, Plan: For possible discharge today Lopressor discontinued and resumed Cardizem CD 180mg daily as home meds Atrial fibrillation well controlled, om Coumadin Discharge planning Follow up in office 1-2 weeks Continue current medications Continue current treatment Will follow up Plan and treatment discussed with Dr. Haynes
[2017-08-17 06:51] LABS: HEMOGLOBIN 10.1 g/dL (12.0-16.0); MEAN CELL VOLUME 81.2 fl (80.0-105.0); MEAN CORPUSCULAR HEMOGLOBIN 25.4 pg (25.0-35.0); MEAN CORPUSCULAR HGB CONC 31.3 g/dl (31.0-37.0); MEAN PLATELET VOLUME 9.7 fl (7.0-11.0); RBC 3.98 10^6/uL (3.5-6.1); RED CELL DISTRIBUTION WIDTH 16.9 % (11.5-14.5); WHITE BLOOD COUNT 12.1 10^3/ul (4.5-11.0)
[2017-08-17 07:18] LABS: INR 2.47 (0.93-1.08); PROTHROMBIN TIME 28.9 SECONDS (9.4-12.5)
[2017-08-17] MEDS: Multivitamin With Minerals Tab PO SCH (09:18)
[2017-08-17] MEDS: POLYETHYLENE GLYCOL 3350 17 GM/Dose PACKET PO SCH ×2 (09:18→17:34)
[2017-08-17] MEDS: diltiaZEM 180 mg/24 Hours CD Cap PO SCH (09:18)
[2017-08-17] MEDS: Hydrocortisone 2.5% Rectal Cream(30 gm) PR SCH ×2 (09:19→18:22)
[2017-08-17] MEDS ORDERED: levoFLOXacin 500 MG TAB PO SCH (10:00)
[2017-08-17 14:47] VITALS: BP 112/49; PULSE 65; RESP 16; TEMP 99; O2SAT 99
--- NOTE | 2017-08-17 16:05 | CP.PCM.DIS ---
<Chuy Weaver - Last Filed: 08/17/17 15:56> Provider - Provider Date of Admission: 08/14/17 18:47 Attending physician: Anna Burkett MD Consults: Cardiology - [place] Time Spent in preparation of Discharge (in minutes): 60 Hospital Course - Lab Results Lab Results: Most Recent Lab Values WBC 12.1 10^3/ul (4.5-11.0) H D 08/17/17 06:20 RBC 3.98 10^6/uL (3.5-6.1) 08/17/17 06:20 Hgb 10.1 g/dL (12.0-16.0) L 08/17/17 06:20 Hct 32.3 % (36.0-48.0) L 08/17/17 06:20 MCV 81.2 fl (80.0-105.0) 08/17/17 06:20 MCH 25.4 pg (25.0-35.0) 08/17/17 06:20 MCHC 31.3 g/dl (31.0-37.0) 08/17/17 06:20 RDW 16.9 % (11.5-14.5) H 08/17/17 06:20 Plt Count 273 10^3/uL (120.0-450.0) 08/17/17 06:20 MPV 9.7 fl (7.0-11.0) 08/17/17 06:20 Gran % 70.1 % (50.0-68.0) H 08/14/17 06:00 Lymph % (Auto) 21.0 % (22.0-35.0) L 08/14/17 06:00 [place] % (Auto) 6.5 % (1.0-6.0) H 08/14/17 06:00 Eos % (Auto) 2.0 % (1.5-5.0) 08/14/17 06:00 Baso % (Auto) 0.4 % (0.0-3.0) 08/14/17 06:00 Gran # 8.00 (1.4-6.5) H 08/14/17 06:00 Lymph # (Auto) 2.4 (1.2-3.4) 08/14/17 06:00 [place] # (Auto) 0.7 (0.1-0.6) H 08/14/17 06:00 Eos # (Auto) 0.2 (0.0-0.7) 08/14/17 06:00 Baso # (Auto) 0.04 K/mm3 (0.0-2.0) 08/14/17 06:00 PT 28.9 SECONDS (9.4-12.5) H 08/17/17 06:20 INR 2.47 (0.93-1.08) H 08/17/17 06:20 APTT 27.6 Seconds (25.1-36.5) 08/16/17 07:00 Sodium 146 mmol/L (132-148) 08/16/17 07:00 Potassium 4.4 mmol/L (3.6-5.0) 08/16/17 07:00 Chloride 108 mmol/L (98-107) H 08/16/17 07:00 Carbon Dioxide 29 mmol/L (21-33) 08/16/17 07:00 Anion Gap 14 (10-20) 08/16/17 07:00 BUN 9 mg/dL (7-21) 08/16/17 07:00 Creatinine 0.8 mg/dl (0.7-1.2) 08/16/17 07:00 Est GFR ( Amer) > 60 08/16/17 07:00 Est GFR (Non-Af Amer) > 60 08/16/17 07:00 Random Glucose 95 mg/dL (70-110) 08/16/17 07:00 Calcium 9.5 mg/dL (8.4-10.5) 08/16/17 07:00 Phosphorus 3.2 mg/dL (2.5-4.5) 08/16/17 07:00 Magnesium 1.8 mg/dL (1.7-2.2) 08/16/17 07:00 Total Bilirubin 0.5 mg/dL (0.2-1.3) 08/16/17 07:00 AST 27 U/L (14-36) 08/16/17 07:00 ALT 28 U/L (7-56) 08/16/17 07:00 Alkaline Phosphatase 54 U/L (38-126) 08/16/17 07:00 Lactate Dehydrogenase 706 U/L (333-699) H 08/13/17 12:20 Total Creatine Kinase 40 U/L (35-230) 08/13/17 12:20 Troponin I < 0.01 ng/mL 08/13/17 12:20 Total Protein 6.5 g/dL (5.8-8.3) 08/16/17 07:00 Albumin 3.4 g/dL (3.0-4.8) 08/16/17 07:00 Globulin 3.1 gm/dL 08/16/17 07:00 Albumin/Globulin Ratio 1.1 (1.1-1.8) 08/16/17 07:00 Lipase 30 U/L (23-300) 08/13/17 12:20 Procalcitonin 0.09 NG/ML (0.19-0.49) L 08/14/17 06:00 Free T4 1.95 ng/dL (0.78-2.19) 08/16/17 07:50 TSH 3rd Generation 0.60 mIU/mL (0.46-4.68) 08/16/17 07:50 Blood Type A POSITIVE 08/13/17 12:20 Blood Type Confirm A POSITIVE 08/13/17 18:00 Antibody Screen Negative 08/13/17 12:20 BBK History Checked No verified bt 08/13/17 12:20 - Hospital Course Hospital Course: As per admission documentation 87 [place] speaking female with a PMHx of HTN, HLD, dementia, hemorrhoids s/p banding approx 30 yrs ago, CHF EF 60%, cva x 5 and persistent A. fib on coumadin presented to [facility] ED with complaints of 5 consecutive episodes of bright red blood per rectum. Pt son at bedside and primary caregiver. As per son , the patient had experienced a bloody bowel movement earlier this morning and associated abdominal cramping that subsided after the 5 consecutive episodes of bright red blood per rectum. Pt denies feeling any different than her usual state of health. Patient roughly 3 weeks ago was treated at [facility] for flu like symptoms with azithromycin and medrol dose nell. Patient also had an adjustment of her coumadin more recently where she was to take 4 mg coumadin during the week and 5mg during the weekends after being found subtherapeuthic last week. Patient denied any trauma, night sweats, fevers , chills, weight loss. Patient's son did not that the patient has poor oral intake and has tried to supplement with protein drinks. Patient admitted to shortness of breath on exertion. Of note, patient did have a screening colonoscopy years ago, records are with [facility] (formerly [facility]). In ED, patient with stable vital signs. Hospital Course Patient was admitted to the hospital for Hematochezia while on AC ( supratherapeutic) and shortness of breath. Cardio was consulted for afib. Home meds were continued. Shortness of breath showed CXR lung nodule calcified unchanged from prior studies. CT chest shows right middle lobe and lingular infiltrates vs atelectasis. She was started on duonebs as needed. She was started on Levaquin (renally dosed) for CAP. productive cough with clear sputum , afebrile and no leukocytosis. She experienced rib pains from consistent coughing. She was started on robitussin with codeine with improvement. Her hematochezia was secondary to hemorrhoids. CT abd pelvis shows few segments of wall thickening involving sigmoid colon - incomplete distention or colitis? fecal distention of colitis, compression fx of T12. This was treated with anusol. Patient was also placed on miralax and colace. Her coumadin was held and then restarted. Her INR on admission was 5.51 and date of discharge was 2.47. She was discharged with the following instructions. Discharge Instructions 1. Follow up with your primary care physician, Dr. Howell in [place], to get INR next day after discharge. A copy of labs have been made and given to you to provide to your primary care physician. 2. Follow up with Dr. Haynes in his office in 1 - 2 weeks. 3. Your TSH was low 0.04, and your FT4 was 2.21, please recheck in 3-6 months outpatient. 4. Patient given prescriptions for rolling walker and home PT. 5. Take medications as directed. 6. If patient experiences any new or worsening symptoms, please go to the nearest emergency facility. This is just a brief summary of the patient's hospital course. Please see EMR for full details. Physical Exam Appears: Non-toxic, No Acute Distress Head Exam: ATRAUMATIC, NORMOCEPHALIC Eye Exam: EOMI, PERRL. absent: Conjunctival injection, Nystagmus, Scleral icterus Pupil Exam: NORMAL ACCOMODATION, PERRL. absent: Fixed, Irregular, Unequal ENT Exam: Mucous Membranes Moist Neck Exam: Full ROM Respiratory Exam: Clear to Ausculation Bilateral, NORMAL BREATHING PATTERN. + left and right lower rib tenderness. absent: Accessory Muscle Use, Wheezes, Respiratory Distress Cardiovascular Exam: RRR, +S1, +S2. absent: Murmur GI & Abdominal Exam: Soft, Normal Bowel Sounds. absent: Distended, Firm, Guarding, Rigid, Tenderness, Mass, Organomegaly Extremities Exam: Normal Inspection. absent: Calf Tenderness, Pedal Edema Back Exam: NORMAL INSPECTION Neurological Exam: Alert, Awake, Oriented x3 Psychiatric exam: Normal Affect, Normal Mood Skin Exam: Dry, Normal Color, Warm Discharge Exam - Head Exam Head Exam: NORMOCEPHALIC Discharge Plan - Discharge Medications Prescriptions: Docusate Sodium [Colace] 100 mg PO BID #20 capsule Warfarin [Coumadin] 3 mg PO 1800 #30 tab levoFLOXacin [Levaquin] 500 mg PO DAILY #3 tab Polyethylene Glycol 3350 [Miralax] 17 gm PO DAILY #20 powd.pack guaiFENesin/Codeine [Robitussin w/Codeine] 5 ml PO Q6H #1 bottle - Follow Up Plan Condition: GOOD Disposition: HOME/ ROUTINE Additional Instructions: 1. Follow up with your primary care physician, Dr. Howell in [place], to get INR next day after discharge. A copy of labs have been made and given to you to provide to your primary care physician. 2. Follow up with Dr. Haynes in his office in 1 - 2 weeks. 3. Your TSH was low 0.04, and your FT4 was 2.21, please recheck in 3-6 months outpatient. 4. Patient given prescriptions for rolling walker and home PT. 5. Take medications as directed. 6. If patient experiences any new or worsening symptoms, please go to the nearest emergency facility. Referrals: Clyde Haynes MD [Staff Provider] - <Anna Burkett - Last Filed: 08/18/17 15:10> Provider - Provider Date of Admission: 08/14/17 18:47 Attending physician: Anna Burkett MD Hospital Course - Lab Results Lab Results: Most Recent Lab Values WBC 12.1 10^3/ul (4.5-11.0) H D 08/17/17 06:20 RBC 3.98 10^6/uL (3.5-6.1) 08/17/17 06:20 Hgb 10.1 g/dL (12.0-16.0) L 08/17/17 06:20 Hct 32.3 % (36.0-48.0) L 08/17/17 06:20 MCV 81.2 fl (80.0-105.0) 08/17/17 06:20 MCH 25.4 pg (25.0-35.0) 08/17/17 06:20 MCHC 31.3 g/dl (31.0-37.0) 08/17/17 06:20 RDW 16.9 % (11.5-14.5) H 08/17/17 06:20 Plt Count 273 10^3/uL (120.0-450.0) 08/17/17 06:20 MPV 9.7 fl (7.0-11.0) 08/17/17 06:20 Gran % 70.1 % (50.0-68.0) H 08/14/17 06:00 Lymph % (Auto) 21.0 % (22.0-35.0) L 08/14/17 06:00 [place] % (Auto) 6.5 % (1.0-6.0) H 08/14/17 06:00 Eos % (Auto) 2.0 % (1.5-5.0) 08/14/17 06:00 Baso % (Auto) 0.4 % (0.0-3.0) 08/14/17 06:00 Gran # 8.00 (1.4-6.5) H 08/14/17 06:00 Lymph # (Auto) 2.4 (1.2-3.4) 08/14/17 06:00 [place] # (Auto) 0.7 (0.1-0.6) H 08/14/17 06:00 Eos # (Auto) 0.2 (0.0-0.7) 08/14/17 06:00 Baso # (Auto) 0.04 K/mm3 (0.0-2.0) 08/14/17 06:00 PT 28.9 SECONDS (9.4-12.5) H 08/17/17 06:20 INR 2.47 (0.93-1.08) H 08/17/17 06:20 APTT 27.6 Seconds (25.1-36.5) 08/16/17 07:00 Sodium 146 mmol/L (132-148) 08/16/17 07:00 Potassium 4.4 mmol/L (3.6-5.0) 08/16/17 07:00 Chloride 108 mmol/L (98-107) H 08/16/17 07:00 Carbon Dioxide 29 mmol/L (21-33) 08/16/17 07:00 Anion Gap 14 (10-20) 08/16/17 07:00 BUN 9 mg/dL (7-21) 08/16/17 07:00 Creatinine 0.8 mg/dl (0.7-1.2) 08/16/17 07:00 Est GFR ( Amer) > 60 08/16/17 07:00 Est GFR (Non-Af Amer) > 60 08/16/17 07:00 Random Glucose 95 mg/dL (70-110) 08/16/17 07:00 Calcium 9.5 mg/dL (8.4-10.5) 08/16/17 07:00 Phosphorus 3.2 mg/dL (2.5-4.5) 08/16/17 07:00 Magnesium 1.8 mg/dL (1.7-2.2) 08/16/17 07:00 Total Bilirubin 0.5 mg/dL (0.2-1.3) 08/16/17 07:00 AST 27 U/L (14-36) 08/16/17 07:00 ALT 28 U/L (7-56) 08/16/17 07:00 Alkaline Phosphatase 54 U/L (38-126) 08/16/17 07:00 Lactate Dehydrogenase 706 U/L (333-699) H 08/13/17 12:20 Total Creatine Kinase 40 U/L (35-230) 08/13/17 12:20 Troponin I < 0.01 ng/mL 08/13/17 12:20 Total Protein 6.5 g/dL (5.8-8.3) 08/16/17 07:00 Albumin 3.4 g/dL (3.0-4.8) 08/16/17 07:00 Globulin 3.1 gm/dL 08/16/17 07:00 Albumin/Globulin Ratio 1.1 (1.1-1.8) 08/16/17 07:00 Lipase 30 U/L (23-300) 08/13/17 12:20 Procalcitonin 0.09 NG/ML (0.19-0.49) L 08/14/17 06:00 Free T4 1.95 ng/dL (0.78-2.19) 08/16/17 07:50 TSH 3rd Generation 0.60 mIU/mL (0.46-4.68) 08/16/17 07:50 Blood Type A POSITIVE 08/13/17 12:20 Blood Type Confirm A POSITIVE 08/13/17 18:00 Antibody Screen Negative 08/13/17 12:20 BBK History Checked No verified bt 08/13/17 12:20 Attending/Attestation - Attestation I have personally seen and examined this patient.: Yes I have fully participated in the care of the patient.: Yes I have reviewed all pertinent clinical information, including history, physical exam and plan: Yes Notes (Text): 08/18/17 15:05 attending note; Patient seen and examined with resident. Patient is complaining of cough. Patient is a 87 year old [place] female with past medical history of hypertension, CVA, afib on coumadin, and dyslipidemia who presented with complaint of blood in stools. INR was also supratherapeutic for which patient received Vitamin K. CT abd/pelvis was done which shows fecal distention, mild colon wall thickening and diverticulosis. currently no bleeding. GI evaluation appreciated. Started on Coumadin. INR is 2.4. needs to get repeat INR in 2 days. Started on regular diet. Continue with protonix. Started on miralax and dulcolax. Dietitian evaluation appreciated. Patient has mild leukocytosis and cough. currently on levofloxacin. pleuritic Pain; started on Robitussin with codeine. Rib x-ray is negative. Bilateral atelectasis noted. PT evaluation appreciated. Discharge home today. Prescription for a walker and physical therapy given. Upon discharge the patient will follow-up with PMD Dr. Howell in [place]. The diagnosis and follow-up plan discussed with patient's son in detail.
== END 2017-08-17 22:39 | disposition home or self-care (01) | DRG 174 ==
LOC: ED 11:36 → ERH 13:45 → 2RNO 15:22 → OBSVTOIN 08-14 18:47 → 5RNO 08-15 14:33
PROVIDERS: ADMIT Internal Medicine; ATTEND Internal Medicine
PROC: 3E0F7GC Introduction of Other Therapeutic Substance into Respiratory Tract, Via Natural or Artificial Opening (ICD-10-PCS; principal; 2017-08-15)
DX: K92.1 Melena (principal); D68.32 Hemorrhagic disorder due to extrinsic circulating anticoagulants; T45.515A Adverse effect of anticoagulants, initial encounter; I50.9 Heart failure, unspecified; I11.0 Hypertensive heart disease with heart failure; F03.90 Unspecified dementia, unspecified severity, without behavioral disturbance, psychotic disturbance, mood disturbance, and anxiety; J44.9 Chronic obstructive pulmonary disease, unspecified; J98.11 Atelectasis; M48.54XA Collapsed vertebra, not elsewhere classified, thoracic region, initial encounter for fracture; I48.1 Persistent atrial fibrillation; E78.5 Hyperlipidemia, unspecified; D64.9 Anemia, unspecified; I48.2 Chronic atrial fibrillation; E11.9 Type 2 diabetes mellitus without complications; I27.20 Pulmonary hypertension, unspecified; K57.30 Diverticulosis of large intestine without perforation or abscess without bleeding; Z79.01 Long term (current) use of anticoagulants; Z86.73 Personal history of transient ischemic attack (TIA), and cerebral infarction without residual deficits; Z90.710 Acquired absence of both cervix and uterus